=== PATIENT | female | born 1945 | race Caucasian/White ===

== ENCOUNTER → 2016-03-02 | Outpatient (CLI) | payer MEDICARE ==
--- NOTE | 2016-03-02 17:07 | US ---
EXAMINATION TYPE: US venous doppler duplex UE LT DATE OF EXAM: 03/02/2016 3:58 PM COMPARISON: NONE CLINICAL HISTORY: 70-year-old female with left elbow pain. SIDE PERFORMED: left Findings: The subclavian, internal jugular vein, axillary, and brachial veins were scanned. The superficial bas ilic and cephalic veins as well as the smaller paired radial and ulnar veins were also scanned. There is no abnormal filling defect. Satisfactory flow is demonstrated. Compressibility is demonstrat ed wherever possible. Left Arm: Negative for DVT IMPRESSION: No evidence for acute DVT within the left upper extremity.
--- NOTE | 2016-03-02 19:40 | XR ---
Bilateral shoulders HISTORY: Pain 3 views of both shoulders No comparisons Bone mineralization is reduced, joint spaces and alignment are maintained. No fracture or dislocation . Lung apices are normal as visualized. Distal acromial spur present on the right. Patient is post me nichelle sternotomy. Pacemaker is noted incidentally. Distal acromion is downturned bilaterally. IMPRESSION: Correlate for impingement. Osteopenia.
--- NOTE | 2016-03-02 19:42 | XR ---
Cervical spine HISTORY: Neck pain 5 views of the cervical spine Carotid artery calcifications are suspected. Multilevel facet arthropathy change. Cervical vertebral bodies show preserved height. Bone mineralization is reduced. Retrolisthesis grade 1 C3-4 and C4-5, t here is loss of disc height at C3-4, C4-5. Multilevel spondylosis. Prevertebral soft tissues are norm al. Foraminal encroachment present at C3-4, C4-5 bilaterally due to lateral extension of endplates. P atient is post median sternotomy. Pacemaker lead noted. IMPRESSION: Degenerative disc disease, facet arthropathy, multilevel foraminal encroachment and carot id artery calcification.
--- NOTE | 2016-03-02 19:46 | XR ---
Left elbow HISTORY: Left elbow pain 3 views of the left elbow No comparisons Bone mineralization somewhat reduced. Joint spaces and alignment are maintained. No evident joint eff usion. Question artifact, small flake-like metallic densities posterior to the elbow. Small amount of spurring present at the anterior aspect, coronary process. Question some calcification at the origin of the flexor and extensor tendons. Possible calcific tendinitis, correlate for pain medially and la terally at the distal humerus. IMPRESSION: Mild arthropathy and additional findings above.
== END | disposition home or self-care (01) ==
LOC: RADUSWWP 15:00
PROVIDERS: ATTEND Family Medicine
DX: M25.522 Pain in left elbow (principal); M85.80 Other specified disorders of bone density and structure, unspecified site; M50.30 Other cervical disc degeneration, unspecified cervical region; M46.82 Other specified inflammatory spondylopathies, cervical region; M19.022 Primary osteoarthritis, left elbow
CPT/HCPCS: 72050

== ENCOUNTER → 2016-03-22 | Outpatient (CLI) | payer MEDICARE ==
--- NOTE | 2016-03-22 14:45 | US ---
EXAMINATION TYPE: US carotid duplex BILAT DATE OF EXAM: 03/22/2016 2:26 PM COMPARISON: NONE CLINICAL HISTORY: I77.9 DISORDER OF ARTERIES. Patient c/o left arm weakness x 2 years; prior smoker EXAM MEASUREMENTS: RIGHT: Peak Systolic Velocity (PSV) cm/sec ----- Right CCA: 48.5 ----- Right ICA: 73.3 ----- Right ECA: 98.3 ICA/CCA ratio: 1.5 RIGHT: End Diastole cm/sec ----- Right CCA: 15.4 ----- Right ICA: 16.3 ----- Right ECA: 12.5 LEFT: Peak Systolic Velocity (PSV) cm/sec ----- Left CCA: 70.0 ----- Left ICA: 87.8 ----- Left ECA: 89.8 ICA/CCA ratio: 1.3 LEFT: End Diastole cm/sec ----- Left CCA: 15.7 ----- Left ICA: 31.8 ----- Left ECA: 0.0 VERTEBRALS (direction of flow): Right Vertebral: Antegrade Left Vertebral: Antegrade IMPRESSION: Bilateral carotid bifurcation calcifications are noted, but PSV is within normal limits bilaterally. Criteria for Assigning % of Stenosis / Diameter reduction (Estimation based on the indirect measurements of the internal carotid artery velocities (ICA PSV). 1. Normal (no stenosis)=ICA PSV < 125 cm/s: ratio < 2.0: ICA EDV<40 cm/s. 2. Less than 50% stenosis=ICA PSV < 125 cm/s: ratio < 2.0: ICA EDV<40 cm/s. 3. 50 to 69% stenosis=ICA PSV of 125 to 230 cm/s: ration 2.0 ? 4.0: ICA EDV 40-100 cm/s. 4. Greater than 70% stenosis to near occlusion= ICA PSV > 230 cm/s: ratio > 4.0: ICA EDV > 100 cm/s. 5. Near occlusion= ICA PSV velocities may be low or undetectable: variable ratio and ICA EDV. 6. Total occlusion=unable to detect flow.
== END | disposition home or self-care (01) ==
LOC: RADUSWWP 13:34
PROVIDERS: ATTEND Family Medicine
DX: I65.23 Occlusion and stenosis of bilateral carotid arteries (principal)
CPT/HCPCS: 93880

== ENCOUNTER 2016-09-26 11:38 | Emergency (ER) | payer MEDICARE ==
--- NOTE | 2016-09-26 12:11 | ED ---
General Adult HPI - General Chief complaint: Extremity Injury, Lower Stated complaint: left leg bruising Time Seen by Provider: 09/26/16 11:51 Source: patient, RN notes reviewed Mode of arrival: wheelchair Limitations: no limitations - History of Present Illness Initial comments: Patient is 70-year-old female who presents emergency room today with a chief complaint of an injury to the left lower leg. She does admit that 9 days ago she was trying to get into the bathtub when she slipped and hit the ayala of the left leg on the side of the tub. She missed that she's had some bruises of swelling to the area. She states it seems to be getting worse. She states she has had tenderness with ambulation. Does admit some tenderness to the calf area. Missed some pain down into the ankle as well. She denies any head injury or loss consciousness. Denies any other complaints or symptoms at this time. Patient denies any recent fever, chills, shortness of breath, chest pain, back pain, abdominal pain, nausea or vomiting, dysuria or hematuria, constipation or diarrhea, headaches or visual changes, or any other complaints. - Related Data Home Medications Medication Instructions Recorded Confirmed Cholecalciferol [Vitamin D3] 2,000 unit PO DAILY 04/22/15 09/26/16 Cyanocobalamin (Vitamin B-12) 1,000 mcg PO DAILY 04/22/15 09/26/16 [Vitamin B12] Insulin Glargine [Lantus] 50 unit SQ HS 04/22/15 09/26/16 Losartan [Cozaar] 25 mg PO DAILY 04/22/15 09/26/16 Metoprolol Tartrate [Lopressor] 25 mg PO BID 04/22/15 09/26/16 Nitroglycerin Sl Tabs [Nitrostat] 0.4 mg SL DIRECTED PRN 04/22/15 09/26/16 Brinzolamide/Brimonidine Tart 1 drop BOTH EYES BID 04/27/15 09/26/16 [Simbrinza 1%-0.2% Eye Drops] Prasugrel [Effient] 10 mg PO Q48H 07/08/15 09/26/16 Aspirin [Adult Low Dose Aspirin EC] 81 mg PO DAILY 11/15/15 09/26/16 Furosemide [Lasix] 20 mg PO DIRECTED 11/15/15 09/26/16 metFORMIN HCL [Glucophage] 500 mg PO BID 11/15/15 09/26/16 Atorvastatin [Lipitor] 80 mg PO HS 09/26/16 09/26/16 Gabapentin [Neurontin] 100 mg PO HS 09/26/16 09/26/16 Glimepiride [Amaryl] 1 mg PO DAILY 09/26/16 09/26/16 Sennosides/Docusate Sodium 1 tab PO DAILY 09/26/16 09/26/16 [Doc-Q-Lax Tablet] Previous Rx's Medication Instructions Recorded Cephalexin [Keflex] 500 mg PO Q12HR 10 Days 09/26/16 Allergies Allergy/AdvReac Type Severity Reaction Status Date / Time Iodinated Contrast- Oral and Allergy Anaphylaxis Verified 09/26/16 12:07 IV Dye [Iodinated Contrast Media - IV Dye] Review of Systems ROS Statement: Those systems with pertinent positive or pertinent negative responses have been documented in the HPI. ROS Other: All systems not noted in ROS Statement are negative. Past Medical History Past Medical History: Asthma, Diabetes Mellitus, Eye Disorder, Hyperlipidemia, Myocardial Infarction (CT) Additional Past Medical History / Comment(s): ankle swelling, see Dr Gonzalez H& P, diabetic neuropathy, glaucoma Last Myocardial Infarction Date:: 2006 History of Any Multi-Drug Resistant Organisms: None Reported Past Surgical History: AICD, Appendectomy, Coronary Bypass/CABG, Heart Catheterization, Heart Catheterization With Stent, Hysterectomy, Orthopedic Surgery, Tonsillectomy Additional Past Surgical History / Comment(s): removal of gallstones, hammertoe rt foot, CABG-2008, total 5 cardiac stents Past Anesthesia/Blood Transfusion Reactions: No Reported Reaction Additional Past Anesthesia/Blood Transfusion Reaction / Comment(s): Pt has received blood in the past without reaction. Date of Last Stent Placement:: 06/2015 Past Psychological History: No Psychological Hx Reported Smoking Status: Unknown if ever smoked Past Alcohol Use History: None Reported Past Drug Use History: None Reported - Past Family History Mother Family Medical History: Cancer Additional Family Medical History / Comment(s): Mother of colon cancer at the age of 44 yrs. Brother(s) Family Medical History: Coronary Artery Disease (CAD), Diabetes Mellitus Father History Unknown: Yes Daughter(s) Family Medical History: Cancer General Exam - General Exam Comments Initial Comments: General: The patient is awake and alert, in no distress, and does not appear acutely ill. Eye: Pupils are equal, round and reactive to light, extra-ocular movements are intact. No nystagmus. There is normal conjunctiva bilaterally. No signs of icterus. Ears, nose, mouth and throat: There are moist mucous membranes and no oral lesions. Neck: The neck is supple, there is no tenderness or JVD. Cardiovascular: There is a regular rate and rhythm. No murmur, rub or gallop is appreciated. Respiratory: Lungs are clear to auscultation, respirations are non-labored, breath sounds are equal. No wheezes, stridor, rales, or rhonchi. Gastrointestinal: Soft, non-distended, non-tender abdomen without masses or organomegaly noted. There is no rebound or guarding present. No CVA tenderness. Bowel sounds are unremarkable. Musculoskeletal: Normal ROM patient does have bruising and swelling over the anterior aspect locally tender middle of the tibia bone. Does have some tenderness in the posterior calf. Mild tenderness to the medial aspect of the left ankle. Strength 5/5. Sensation intact. Pulses equal bilaterally 2+. Neurological: A&O x 3. CN II-XII intact, There are no obvious motor or sensory deficits. Coordination appears grossly intact. Speech is normal. Skin: There is bruising swelling to the anterior left ayala. There is local redness around the area. No lymphangitic streaking. Some bruising down into the posterior aspect of the left foot. Psychiatric: Cooperative, appropriate mood & affect, normal judgment. Limitations: no limitations Course Vital Signs 09/26/16 11:39 Temperature 97.1 F L Pulse Rate 54 L Respiratory 16 Rate Blood Pressure 147/63 O2 Sat by Pulse 99 Oximetry Medical Decision Making - Medical Decision Making Patient reexamined at this time shows no signs of distress. Her ultrasound is negative for any evidence of DVT. X-ray negative for any fractures or dislocations. Results were discussed with the patient. There is a bruised area to the anterior aspect of the left ayala with some local redness no. She does admit that the pain and swelling seems to have gotten worse. There is concern for possible cellulitis. Patient will be started on antibiotics. Patient advised follow-up the family doctor over the next 2 days or return here to the emergency room if any symptoms increase or worsen. Disposition Clinical Impression: Cellulitis Disposition: HOME SELF-CARE Condition: Good Instructions: Cellulitis (ED) Additional Instructions: Please use medication as discussed. Please follow-up with family doctor in the next 2 days of symptoms have not improved. Please return to emergency room if the symptoms increase or worsen or for any other concerns. Prescriptions: Cephalexin [Keflex] 500 mg PO Q12HR 10 Days Referrals: Kenya López MD [Primary Care Provider] - 1-2 days Time of Disposition: 14:30
--- NOTE | 2016-09-26 12:32 | XR ---
EXAMINATION TYPE: XR tibia fibula LT DATE OF EXAM: 09/26/2016 CLINICAL HISTORY: Fall injury 9 days ago with persistent pain swelling and redness. TECHNIQUE: Two views of the left leg are obtained. COMPARISON: None. FINDINGS: There is no acute fracture or dislocation seen in the left tibia or fibula. Osseous struct ures are demineralized. There is moderate spurring at level of left knee joint. Visualized ankle join t is felt within normal limits. Metallic pointer is noted at area of clinical concern just past midline right tibial level medially a nd anteriorly. There is mild diffuse subcutaneous edema and some scattered phleboliths. No suspicious focal swelling or large hematoma. There are surgical clips in soft tissue seen just superior to this . No suspicious cortical destruction or periosteal reaction is present. IMPRESSION: There is no acute fracture or dislocation seen in the left tibia or fibula.
[2016-09-26] MEDS ORDERED: HYDROcodone/APAP 5-325MG 1 EACH TAB PO STA (12:44)
[2016-09-26 14:38] VITALS: BP 114/56; PULSE 75; RESP 19; TEMP 97.8
--- NOTE | 2016-09-26 15:03 | US ---
EXAMINATION TYPE: US venous doppler duplex LE LT DATE OF EXAM: 09/26/2016 1:44 PM COMPARISON: NONE CLINICAL HISTORY: Pain. Left leg pain and edema x 9 days SIDE PERFORMED: Left TECHNIQUE: The lower extremity deep venous system is examined utilizing real time linear array sonog sherice with graded compression, doppler sonography and color-flow sonography. VESSELS IMAGED: External Iliac Vein (EIV) Common Femoral Vein Deep Femoral Vein Greater Saphenous Vein * Femoral Vein Popliteal Vein Small Saphenous Vein * Proximal Calf Veins (* superficial vessels) Left Leg: Negative for DVT IMPRESSION: 1. Left lower extremity negative for ultrasound evidence of deep venous thrombosis.
== END 2016-09-26 14:38 | disposition home or self-care (01) ==
LOC: EC 11:38
DX: L03.116 Cellulitis of left lower limb (principal); S80.12XA Contusion of left lower leg, initial encounter; M25.572 Pain in left ankle and joints of left foot; E78.5 Hyperlipidemia, unspecified; I25.2 Old myocardial infarction; E11.40 Type 2 diabetes mellitus with diabetic neuropathy, unspecified; H57.8 Other specified disorders of eye and adnexa; Z79.02 Long term (current) use of antithrombotics/antiplatelets; Z79.4 Long term (current) use of insulin; Z79.82 Long term (current) use of aspirin; Z79.84 Long term (current) use of oral hypoglycemic drugs; Z79.899 Other long term (current) drug therapy; Z91.041 Radiographic dye allergy status
CPT/HCPCS: 99284

== ENCOUNTER → 2016-09-26 | Outpatient (CLI) | payer MEDICARE | END | disposition home or self-care (01) | LOC: LABWHC1 11:27 | PROVIDERS: ATTEND Family Medicine | DX: R94.4 Abnormal results of kidney function studies (principal) | CPT/HCPCS: 36415; 81050; 82575; 84156 ==

== ENCOUNTER → 2016-10-28 | Outpatient (CLI) | payer MEDICARE ==
[2016-10-28 08:47] LABS: Basophils # (A) 0.1 k/uL (0-0.2); Basophils % (A) 1 %; CH 28.3; CHCM 31.2; Eosinophils # (A) 0.2 k/uL (0-0.7); Eosinophils % (A) 4 %; HCT 39.7 % (34.0-46.0); HDW 2.55; HGB 12.7 gm/dL (11.4-16.0); Hypochromasia Slight; Luc # (Auto) 0.14; Luc % (Auto) 2; Lymphocytes # (A) 1.5 k/uL (1.0-4.8); Lymphocytes % (A) 24 %; MCH 29.3 pg (25.0-35.0); MCV 91.5 fL (80.0-100.0); Monocytes # (A) 0.4 k/uL (0-1.0); Monocytes % (A) 6 %; Neutrophils % (A) 63 %; RBC 4.34 m/uL (3.80-5.40); RDW 14.1 % (11.5-15.5); WBC 6.3 k/uL (3.8-10.6); WBC (Perox) 6.37
[2016-10-28 09:10] LABS: ALT 29 U/L (9-52); AST 18 U/L (14-36); Alkaline Phosphatase 64 U/L (38-126); Anion Gap 11 mmol/L; Blood Urea Nitrogen 29 mg/dL (7-17); Calcium 8.9 mg/dL (8.4-10.2); Carbon Dioxide 26 mmol/L (22-30); Chloride 108 mmol/L (98-107); Glucose 127 mg/dL (74-99); Non-African American GFR(MDRD) 53 (>60 ml/min/1.73 sqM); Phosphorous 4.3 mg/dL (2.5-4.5); Potassium 4.3 mmol/L (3.5-5.1); Sodium 145 mmol/L (137-145); Total Bilirubin 0.5 mg/dL (0.2-1.3); Total Protein 6.5 g/dL (6.3-8.2)
== END | disposition home or self-care (01) ==
LOC: LABWHC1 10-25 13:32
PROVIDERS: ATTEND Family Medicine
DX: R94.4 Abnormal results of kidney function studies (principal)
CPT/HCPCS: 36415; 80053; 84100; 85025

== ENCOUNTER → 2017-05-10 | Outpatient (CLI) | payer MEDICARE | END | disposition home or self-care (01) | LOC: RADUSWWP 08:18 | PROVIDERS: ATTEND Family Medicine | DX: M79.605 Pain in left leg (principal); M79.604 Pain in right leg | CPT/HCPCS: 93922 ==

== ENCOUNTER → 2017-08-24 | Outpatient (CLI) | payer MEDICARE ==
[2017-08-24 07:56] LABS: HCT 40.1 % (34.0-46.0); HGB 12.7 gm/dL (11.4-16.0); MCH 29.2 pg (25.0-35.0); MCHC 31.7 g/dL (31.0-37.0); MCV 92.1 fL (80.0-100.0); Mean Platelet Volume 7.4; Platelet Count 192 k/uL (150-450); RBC 4.36 m/uL (3.80-5.40)
[2017-08-24 08:16] LABS: Albumin 3.8 g/dL (3.5-5.0); Calcium 9.1 mg/dL (8.4-10.2); Potassium 4.7 mmol/L (3.5-5.1); Total Bilirubin 0.7 mg/dL (0.2-1.3); Total Protein 6.3 g/dL (6.3-8.2); Uric Acid 7.8 mg/dL (3.7-7.4)
[2017-08-24 08:57] LABS: Appearance,Urine Clear (Clear); Bacteria,Urine Rare /hpf; Bilirubin,Urine Negative (Negative); Blood,Urine Negative (Negative); Color,Urine Light Yellow; Glucose,Urine (UA) Negative (Negative); Hyaline Casts,Urine 3 /lpf (0-2); Ketones,Urine Negative (Negative); Leukocyte Esterase,Urine Moderate (Negative); Mucus,Urine Rare /hpf; Nitrite,Urine Negative (Negative); PH, Urine 5.5 (5.0-8.0); Protein,Urine Negative (Negative); RBC,Urine <1 /hpf (0-5); Specific Gravity,Urine 1.014 (1.001-1.035); Squamous Epithelial Cell,Urine 1 /hpf (0-4); Urobilinogen,Urine <2.0 mg/dL (<2.0); WBC,Urine 3 /hpf (0-5)
[2017-08-24 11:28] LABS: Iron Saturation 26.33 (12.00-45.00)
[2017-08-24 11:40] LABS: Vitamin D 25 Hydroxy 27.6 ng/mL (30.0-100.0)
[2017-08-24 11:56] LABS: Parathyroid Hormone Intact 47.7 pg/mL (14.0-72.0)
== END | disposition home or self-care (01) ==
LOC: LABWHC1 07:10
PROVIDERS: ATTEND Nurse Practitioner Family
DX: N39.0 Urinary tract infection, site not specified (principal); N25.81 Secondary hyperparathyroidism of renal origin; E55.9 Vitamin D deficiency, unspecified; M10.9 Gout, unspecified; D50.9 Iron deficiency anemia, unspecified; N18.3 Chronic kidney disease, stage 3 (moderate)
CPT/HCPCS: 36415; 80053; 81001; 82043; 82306; 82570; 82728; 83540; 83550; 83970; 84550; 85027

== ENCOUNTER → 2018-05-24 | Outpatient (CLI) | payer MEDICARE ==
[2018-05-24 11:09] LABS: HCT 42.3 % (34.0-46.0); Hypochromasia Slight; MCH 28.3 pg (25.0-35.0); MCHC 30.7 g/dL (31.0-37.0); MCV 92.1 fL (80.0-100.0); Mean Platelet Volume 7.2; Platelet Count 207 k/uL (150-450); RBC 4.59 m/uL (3.80-5.40); RDW 14.3 % (11.5-15.5); WBC 6.4 k/uL (3.8-10.6)
[2018-05-24 11:20] LABS: Potassium 4.8 mmol/L (3.5-5.1)
== END ==
LOC: LABPAT 09:46
PROVIDERS: ATTEND Internal Medicine Interventional Cardiology
DX: Z01.812 Encounter for preprocedural laboratory examination (principal); I25.2 Old myocardial infarction; I25.718 Atherosclerosis of autologous vein coronary artery bypass graft(s) with other forms of angina pectoris; I10 Essential (primary) hypertension
CPT/HCPCS: 80051; 82565; 84520; 85027

== ENCOUNTER 2018-05-30 06:58 | Day surgery (SDC) | payer MEDICARE ==
[2018-05-24 12:15] VITALS: BMI 29.2
[~2018-05-30 06:58] MED LIST: ALPRAZolam 0.25 MG TAB PO PRN; ALPRAZolam 0.5 MG TAB PO PRN; ASPIRIN 325 MG TAB PO STA; ATORVASTATIN 80 MG TAB PO STA; NITROGLYCERIN SL TABS 0.4 MG TAB SUBLINGUAL PRN
[2018-05-30] MEDS ORDERED: SODIUM CHLORIDE 0.9% 1,000 ML in EMPTY BAG 1 BAG IV ONE (07:00)
[2018-05-30] MEDS ORDERED: SODIUM CHLORIDE 0.9% 1,000 ML IV ONE (07:20)
[2018-05-30 07:35] LABS: Glucose,Whole Blood 351 mg/dL (75-99)
[2018-05-30] MEDS: INSULIN ASPART (NovoLOG) 100 UNIT/ML VIAL SQ SCH ×5 (07:42→20:37)
[2018-05-30] MEDS ORDERED: LIDOCAINE 1% INJ 10MG/ML (20 ML MDV) ONE (10:39)
[2018-05-30] MEDS ORDERED: MIDAZOLAM 2 MG/2 ML VIAL IVP ONE ×2 (11:20→12:17)
[2018-05-30] MEDS ORDERED: LIDOCAINE 1% INJ 10MG/ML (20 ML MDV) SQ ONE (11:21)
[2018-05-30] MEDS ORDERED: NITROGLYCERIN SL TABS 0.4 MG TAB SUBLINGUAL ONE (11:26)
[2018-05-30] MEDS ORDERED: HEPARIN SODIUM 1,000 UN/ML (10ML VL) ONE (11:45)
[2018-05-30] MEDS ORDERED: HEPARIN SODIUM 1,000 UN/ML (10ML VL) IV ONE ×2 (11:46→12:38)
[2018-05-30] MEDS ORDERED: IOPAMIDOL-370 100ML BTL INJ ONE ×2 (12:09→12:48)
[2018-05-30] MEDS ORDERED: IOPAMIDOL-370 50ML BTL INJ ONE (12:33)
[2018-05-30] MEDS ORDERED: TICAGRELOR 90 MG TAB ONE (12:42)
[2018-05-30] MEDS ORDERED: MAG HYDROX/AL HYDROX/SIMETH 30 ML CUP PO PRN (13:02)
[2018-05-30] MEDS ORDERED: NITROGLYCERIN SL TABS 0.4 MG TAB SUBLINGUAL PRN ×2 (13:02→15:37)
[2018-05-30] MEDS ORDERED: ATROPINE SULFATE 0.1 MG/ML 10ML SYRINGE IV PRN (13:02)
[2018-05-30] MEDS ORDERED: ZOLPIDEM 5 MG TAB PO PRN (13:02)
[2018-05-30] MEDS ORDERED: RX INFO: IV CONTRAST WAS GIVEN 1 EACH MISC MISCELLANE PRN (13:02)
[2018-05-30 13:10] LABS: Glucose,Whole Blood 278 mg/dL (75-99)
[2018-05-30] MEDS ORDERED: SODIUM CHLORIDE 0.9% 1,000 ML IV SCH (13:15)
--- NOTE | 2018-05-30 14:03 | CC ---
CARDIAC CATHETERIZATION REPORT DATE OF SERVICE: 05/30/2018. PROCEDURE: 1. Left heart catheterization, coronary angiography and selective injection of WILLETT graft. 2. PTCA and stenting of left main coronary artery with a drug-eluting stent. 3. PTCA and stenting of mid LAD with a drug-eluting stent. PERFORMED BY: Dr. Candy Robles. Moderate conscious sedation time was 85 minutes. Patient was administered Versed. Oxygen saturation, hemodynamics and EKG were monitored closely. CLINICAL INFORMATION: Mrs. Lili Magaña is a 72-year-old lady with history of type 2 diabetes, mild CKD, hypertension, hyperlipidemia, who underwent aortocoronary bypass surgery in 2006 with a WILLETT to LAD and vein graft to the obtuse marginal branch of circumflex and distal RCA. Both the vein grafts were occluded and WILLETT to LAD was patent. In 2016, I performed stenting of the in-stent restenoses within the mid RCA. I also performed stenting of the LAD prior to the total occlusion before the diagonal branch with two drug-eluting stents. There was a left main lesion which was not addressed. It was about 50% and the and I could not get into the circumflex which was completely diffusely diseased. The ostium of the circumflex had a 60% stenosis, but I could not gain access with a wire at that time. She was doing well until lately, but now had a significantly abnormal stress test with inferolateral ischemia. She also has an ICD with ejection fraction in the 30% range. She was advised cardiac cath after due discussion regarding risks, benefits, and options. PROCEDURE NOTE: Under local anesthesia and strict aseptic precautions, a 6-Telugu introducer was placed in the right femoral artery. Standard left Monique catheter was used to perform selective coronary angiography of the left system. A Pepito catheter was used to check the WILLETT graft and the right coronary artery. Two vein grafts were occluded. I used the same catheter to check LV pressures but did not perform an LV-gram. I noted that the left main had a 99% stenosis and subtotal occlusion of circumflex was noted and also LAD had a compromise in the midportion. She was advised PCI that was performed in the same setting. very cautiously, the contrast was administered. She received about 130 mL of contrast. She was given heparin intravenously and ACT was kept between 200 and 250. She also received 180 mg of Brilinta at the end of the procedure. Following the procedure, I used a Perclose device to secure hemostasis and she was sent to the room in a stable condition. CARDIAC CATHETERIZATION FINDINGS: RIGHT CORONARY ARTERY: Dominant vessel, has a area of stenosis within the midportion where there was a previous stent. I had performed a in-stent restenoses dilatation with a new stent in 2016. The area is widely patent. There is about a 35% narrowing in the mid RCA. RCA is a dominant vessel, bifurcates into two distal branches, supplies a sizable amount of myocardium and also provide some collaterals to the distal circumflex branches. The RCA therefore does not have significant disease and the stented segment is patent with no more than 30% to 35% narrowing. LEFT MAIN CORONARY ARTERY: This is a heavily calcified vessel that has a distal lesion of 99% with sluggish flow in the LAD as well as very limited flow in the circumflex. Circumflex appears to be subtotally occluded, chronically occluded. Diffuse disease is noted from the ostium all the way to the distal branches. Subtotal occlusion of circumflex and also a tight lesion in the distal left main is noted with some 70% lesion in the mid LAD. The LAD is totally occluded in the mid portion after the origin of two diagonal branches. The circumflex has a subtotal occlusion, but is a diffuse disease vessel. LEFT INTERNAL MAMMARY ARTERY GRAFT TO LAD: The graft is widely patent at its origin, course insertion site and opacified LAD has minor irregularities, no significant disease. Left ventricular end-diastolic pressure was about 12-14 mmHg without any gradient across the aortic valve. There was, if any, less than 10 mm gradient noted. FINAL IMPRESSION: This patient has a total occlusion of both vein grafts. Diffuse disease and subtotal occlusion of circumflex whose graft was totally occluded. Left main now has a 95% stenosis and just before bifurcation and LAD has diffuse disease and total occlusion in the midportion and the mid segment has a 70% to 80% narrowing. The previously stented dominant RCA is patent. Filling pressures are acceptable. RECOMMENDATION: I recommended PCI of left main and possibly of circumflex and LAD and proceeded to perform it in the same setting. It was explained to the patient that she is high risk for complication as well as restenosis rate. PCI PROCEDURE DETAILS: A standard left Monique guide catheter was used to cannulate the left coronary artery. A run-through wire was used to cross the lesion in the left mid LAD. Wire was kept distally. With multiple wires and also using a Fine Cross catheter support, I could not gain access into the circumflex that was diffusely diseased. I made a decision to not pursue circumflex intervention, which was being filled by collaterals of the right system but to open up the LAD which had a tight lesion as well. I could not advance the 3.0 balloon and therefore I used a 2.0 NC Trek balloon. With this I gave the high pressure inflation for the left main and then gradually went up to 3.0 balloon. With a 3.0 balloon at high pressure, there was a dissection noted within the left main. I then lost the guide support and the wire support. I had to rewire the lesion. I then used a 3.0 caliber 12 mm long Xience stent and deployed this in the left main covering the area of dissection. I then advanced a 2.0 Tyson and deployed this in the mid LAD. This was then postdilated with a 2.5 caliber 8 mm long NC Trek balloon up to 15 atmospheres. A fairly decent result in the mid LAD was achieved. The left main was then addressed with a 3.5 caliber 12 mm NC Trek balloon at high pressures. The patient had mild chest pain, no significant EKG changes. I could not salvage the circumflex vessel which appeared to have a sluggish flow even at the end of the procedure. However, the left main result was excellent as well as the LAD had a significant improvement in angiographic appearance and flow. Results were discussed with the patient and family. The Perclose device was used to secure hemostasis and she was sent to the room in a stable condition. Good angiographic result was achieved of the left main and mid LAD, but I could not open of the circumflex. A small dissection in the left main was addressed with a stent and the end result was excellent. MMODL / IJN: [id number] /
[2018-05-30 16:36] LABS: Glucose,Whole Blood 230 mg/dL (75-99)
[2018-05-30 20:06] LABS: Glucose,Whole Blood 260 mg/dL (75-99)
[2018-05-30] MEDS: BRIMONIDINE TARTRATE 0.2% DROPS 5 ML BTL BOTH EYES SCH (20:21)
[2018-05-30] MEDS: DORZOLAMIDE HCL 2% DROPS 10 ML BTL BOTH EYES SCH (20:21)
[2018-05-30] MEDS: METOPROLOL TARTRATE 25 MG TAB PO SCH (20:37)
[2018-05-30] MEDS ORDERED: INSULIN DETEMIR (LEVEMIR) 100 UNIT/ML SYR SQ SCH (21:00)
[2018-05-30] MEDS ORDERED: ATORVASTATIN 80 MG TAB PO SCH ×2 (21:00)
[2018-05-30 23:11] VITALS: RESP 18
[2018-05-31 06:13] LABS: Glucose,Whole Blood 155 mg/dL (75-99)
[2018-05-31] MEDS: INSULIN ASPART (NovoLOG) 100 UNIT/ML VIAL SQ SCH (06:21)
[2018-05-31 06:41] LABS: Basophils % (A) 0 %; Eosinophils # (A) 0.1 k/uL (0-0.7); Eosinophils % (A) 1 %; HCT 38.7 % (34.0-46.0); HGB 12.3 gm/dL (11.4-16.0); Lymphocytes # (A) 1.8 k/uL (1.0-4.8); Lymphocytes % (A) 16 %; MCH 28.4 pg (25.0-35.0); MCHC 31.7 g/dL (31.0-37.0); MCV 89.4 fL (80.0-100.0); Mean Platelet Volume 8.9; Monocytes # (A) 0.6 k/uL (0-1.0); Monocytes % (A) 6 %; Neutrophils # (A) 8.4 k/uL (1.3-7.7); Neutrophils % (A) 76 %; Platelet Count 207 k/uL (150-450); RBC 4.32 m/uL (3.80-5.40); RDW 15.1 % (11.5-15.5)
[2018-05-31 06:55] LABS: Calcium 9.1 mg/dL (8.4-10.2); Magnesium 2.5 mg/dL (1.6-2.3); Potassium 4.8 mmol/L (3.5-5.1)
[2018-05-31] MEDS: DORZOLAMIDE HCL 2% DROPS 10 ML BTL BOTH EYES SCH (08:29)
[2018-05-31] MEDS: BRIMONIDINE TARTRATE 0.2% DROPS 5 ML BTL BOTH EYES SCH (08:30)
[2018-05-31] MEDS: METOPROLOL TARTRATE 25 MG TAB PO SCH (08:31)
[2018-05-31 08:47] VITALS: BP 131/91; PULSE 72; TEMP 97.8
--- NOTE | 2018-05-31 08:55 | DS ---
DISCHARGE SUMMARY DATE OF ADMISSION: 05/30/2018. DATE OF DISCHARGE: 05/31/2018. DIAGNOSES: 1. Unstable angina, ischemic cardiomyopathy. 2. Type 2 diabetes. 3. Hypertension. 4. Hyperlipidemia. 5. Prior history of aortocoronary bypass surgery. PROCEDURES PERFORMED: 1. Left heart catheterization, coronary angiography, selective injection of bypass grafts. 2. PTCA and stenting of left main and mid LAD with drug-eluting stents. Mrs. Lili Magaña was admitted to the hospital for elective cardiac cath because of abnormal stress test with inferolateral reversible defect as well as some anteroapical reversible defect. Cardiac cath revealed that her left main was subtotal and also the circumflex was subtotal, but this was a heavily diseased vessel whose graft had been previously occluded. The previously stented RCA was patent. The LAD that was stented had some compromise, but the left main developed a 95% subtotal stenosis. The patient underwent stenting of the left main and mid LAD with 2 drug-eluting stents with excellent result. Unfortunately, the circumflex could not be opened up because it was unable to get a wire across the circumflex and the vessel was diffusely diseased in the prospect of leaving it open even with a stent was quite poor. We therefore did not persist circumflex intervention. A left main and LAD had a good result. RCA was widely patent. Postprocedure course was unremarkable. Blood pressure is 120/80, pulse rate is 70 per minute. No JVD. S1, S2 with a short systolic murmur is audible. Lungs are clear. Abdomen is soft. Right groin is clean and dry with a good pulse. EKG is unremarkable for any acute changes. Laboratory data was good. Discharge instructions regarding activity, diet and medications were given. Patient will be on dual antiplatelet therapy and will be discharged today and she will follow up with me on Sunday as scheduled. MMODL / IJN: [id number] /
[2018-05-31] MEDS ORDERED: CHOLECALCIFEROL 1,000 UNIT TAB PO SCH (09:00)
[2018-05-31] MEDS ORDERED: ALLOPURINOL 100 MG TAB PO SCH (09:00)
[2018-05-31] MEDS ORDERED: FUROSEMIDE 40 MG TAB PO SCH (09:00)
[2018-05-31] MEDS ORDERED: GABAPENTIN 100 MG CAP PO SCH (09:00)
[2018-05-31] MEDS ORDERED: ASPIRIN 81 MG PO SCH ×2 (09:00)
[2018-05-31] MEDS ORDERED: GLIMEPIRIDE 1 MG TAB PO SCH (09:00)
[2018-05-31] MEDS ORDERED: TICAGRELOR 90 MG TAB PO SCH (09:00)
[2018-05-31] MEDS ORDERED: LOSARTAN 25 MG TAB PO SCH (09:00)
[2018-05-31] MEDS ORDERED: CYANOCOBALAMIN 500 MCG TAB PO SCH (09:00)
[2018-06-01] MEDS ORDERED: FUROSEMIDE 20 MG TAB PO SCH (09:00)
== END 2018-05-31 10:08 | disposition home or self-care (01) ==
LOC: CATHCVL 06:58 → 3SCARD 14:36 → CATHCVL 05-31 10:08
PROVIDERS: ATTEND Internal Medicine Interventional Cardiology
DX: I25.110 Atherosclerotic heart disease of native coronary artery with unstable angina pectoris (principal); T82.855A Stenosis of coronary artery stent, initial encounter; I25.5 Ischemic cardiomyopathy; E78.5 Hyperlipidemia, unspecified; I12.9 Hypertensive chronic kidney disease with stage 1 through stage 4 chronic kidney disease, or unspecified chronic kidney disease; E11.22 Type 2 diabetes mellitus with diabetic chronic kidney disease; R94.39 Abnormal result of other cardiovascular function study; N18.2 Chronic kidney disease, stage 2 (mild); E78.00 Pure hypercholesterolemia, unspecified; E11.65 Type 2 diabetes mellitus with hyperglycemia; I25.82 Chronic total occlusion of coronary artery; Z95.1 Presence of aortocoronary bypass graft; Z95.810 Presence of automatic (implantable) cardiac defibrillator; Z72.0 Tobacco use; Z95.5 Presence of coronary angioplasty implant and graft; Z79.4 Long term (current) use of insulin; Z79.899 Other long term (current) drug therapy; Z79.82 Long term (current) use of aspirin; Z91.048 Other nonmedicinal substance allergy status; Z79.52 Long term (current) use of systemic steroids; Y71.2 Prosthetic and other implants, materials and accessory cardiovascular devices associated with adverse incidents
CPT/HCPCS: 93459; 80048; 83735; 85025; C9600 ×2; C1769 ×5; C1887 ×2; C1725 ×4; C1894; C1760; C1874 ×2; J2250; J2001; J1644; Q9967 ×2

== ENCOUNTER → 2018-06-10 | Outpatient (CLI) | payer MEDICARE ==
[2018-06-10 18:31] LABS: Anion Gap 9.4 mmol/L (4.00-12.00); Calcium 9.7 mg/dL (8.7-10.3); Carbon Dioxide 26.6 mmol/L (21.6-31.8); Potassium 4.5 mmol/L (3.5-5.5)
== END ==
LOC: LABWHC1 11:51
PROVIDERS: ATTEND Internal Medicine Interventional Cardiology
DX: I25.10 Atherosclerotic heart disease of native coronary artery without angina pectoris (principal); I50.9 Heart failure, unspecified
CPT/HCPCS: 36415; 80048

== ENCOUNTER → 2019-03-07 | Outpatient (CLI) | payer MEDICARE ==
--- NOTE | 2019-03-07 17:15 | CT ---
EXAMINATION TYPE: CT abdomen pelvis wo con DATE OF EXAM: 03/07/2019 COMPARISON: None INDICATION: LLQ pain DLP: 921 mGycm, Automated exposure control for dose reduction was used. CONTRAST: 0 mL of Isovue 300. Study performed with Oral Contrast TECHNIQUE: Axial images were obtained from above the diaphragm to the pubic rami in the axial plane a t 5 mm thick sections. Reconstructed images are reviewed on the computer in the coronal plane. FINDINGS: Limited CT sections are obtained the lung bases. The lung bases are clear. Coronary artery calcific ation is present. CT ABDOMEN: Liver: Normal Spleen: Normal Pancreas: Severely atrophic Adrenal glands: The adrenal glands are normal. Gallbladder: Normal Kidneys: No masses are evident. No hydronephrosis is present. There is a 0.2 cm cyst on the superio r medial right kidney. There is a posterior is 2.0 cm cyst on the upper pole left kidney. Aorta: Vascular stents calcification is within the aorta. Inferior vena cava: Normal. CT PELVIS: Loops of bowel within the abdomen and pelvis are normal. There are loops of bowel which are incom pletely distended or lack oral contrast limiting their evaluation. Appendix: Appendicolith is within the appendix. No suspicious acute appendicitis is evident. Urinary bladder: Decompressed causing limitation. Genitourinary structures: Uterus and ovaries are not identified. Osseous structures: No suspicious lytic or sclerotic lesions. IMPRESSIONS: 1. Appendicolith within the appendix. Acute appendicitis however is not evident on current CT findin gs. 2. Bilateral renal cysts. 3. Severely atrophic pancreas.
== END | disposition home or self-care (01) ==
LOC: RADCTMAIN 11:14
PROVIDERS: ATTEND Family Medicine
DX: K38.1 Appendicular concretions (principal); Q61.02 Congenital multiple renal cysts; K86.89 Other specified diseases of pancreas; Z88.3 Allergy status to other anti-infective agents
CPT/HCPCS: 74176

== ENCOUNTER → 2019-09-04 | Outpatient (CLI) | payer MEDICARE ==
--- NOTE | 2019-09-04 14:59 | MM ---
Reason for exam: clinical finding. History: Patient is postmenopausal. Family history of breast cancer in daughter at age 38. Physical Findings: Nurse Summary: 2cm nodule in the right breast at 5 o'clock (nurse marga). MG 3D Diag Mammo W/Cad ZAKIA Bilateral CC and MLO view(s) were taken. XCCL view(s) were taken of the right breast. The breast tissue is heterogeneously dense. This may lower the sensitivity of mammography. Right 5 o'clock and axillary palpable markers. 5 o'clock suspicious mass, subareolar focal asymmetry, upper outer quadrant focal asymmetry. Left 11 o'clock anterior focal asymmetry seems to persist on spot MLO but not the other views. These results were verbally communicated with the patient and result sheet given to the patient on 09/04/19. ASSESSMENT: Incomplete: need additional imaging evaluation, BI-RAD 0 RECOMMENDATION: Ultrasound of both breasts.
--- NOTE | 2019-09-04 15:04 | USB ---
Reason for exam: additional evaluation requested from abnormal screening. History: Patient is postmenopausal. Family history of breast cancer in daughter at age 38. US Breast BILAT Right complete breast ultrasound includes all four quadrants, the retroareolar region and axilla. Finding demonstrates a 0.9 x 1.2 x 0.4cm oval, echogenic lipoma at 4 o'clock, a 1.3 x 0.9 x 1.5cm taller than wide, irregular, hypoechoic lesion at 5 o'clock adjacent 4 o'clock 9mm cystic component, a 1.8 x 1.8 x 0.9cm oval node, borderline enlarged but benign appearing with thin cortex and fatty hilum at the axilla and at the 10 o'clock palpated by the nurse, there is dense tissue. Left complete breast ultrasound includes all four quadrants, the retroareolar region and axilla. Finding demonstrates a 1.0 x 1.1 x 0.7cm benign oval node at the axilla. These results were verbally communicated with the patient and result sheet given to the patient on 09/04/19. ASSESSMENT: Highly suggestive of malignancy, BI-RAD 5 RECOMMENDATION: Surgical consultation and ultrasound core biopsy of the right breast. (one site, 5 o'clock) Called Dr. López's office with mammographic findings and has scheduled an appointment for the patient for 09/11/19 at 4:[address] Alex. PRELIMINARY REPORT CALLED AND FAXED TO DR. ALEX ON 09/04/19.
== END | disposition home or self-care (01) ==
LOC: RADMAMWWP 09:54
PROVIDERS: ATTEND Family Medicine
DX: N63.10 Unspecified lump in the right breast, unspecified quadrant (principal); R92.8 Other abnormal and inconclusive findings on diagnostic imaging of breast
CPT/HCPCS: 77066; 76641; G0279; 77062

== ENCOUNTER → 2019-10-13 | Outpatient (CLI) | payer MEDICARE | END | disposition home or self-care (01) | LOC: LABPAT 13:10 | PROVIDERS: ATTEND Surgery | DX: Z11.59 Encounter for screening for other viral diseases (principal) | CPT/HCPCS: U0003; C9803 ==

== ENCOUNTER → 2019-10-14 | Outpatient (CLI) | payer MEDICARE ==
[2019-10-14 12:59] LABS: Basophils # (A) 0.1 k/uL (0-0.2); Basophils % (A) 1 %; Eosinophils # (A) 0.3 k/uL (0-0.7); Eosinophils % (A) 4 %; HCT 44.9 % (34.0-46.0); HGB 13.5 gm/dL (11.4-16.0); Hypochromasia Slight; Lymphocytes # (A) 1.9 k/uL (1.0-4.8); Lymphocytes % (A) 26 %; MCH 28.7 pg (25.0-35.0); MCHC 30.1 g/dL (31.0-37.0); MCV 95.6 fL (80.0-100.0); Mean Platelet Volume 7.5; Monocytes # (A) 0.4 k/uL (0-1.0); Monocytes % (A) 5 %; Neutrophils # (A) 4.7 k/uL (1.3-7.7); Neutrophils % (A) 63 %; Platelet Count 207 k/uL (150-450); RDW 13.9 % (11.5-15.5); WBC 7.4 k/uL (3.8-10.6)
== END | disposition home or self-care (01) ==
LOC: LABWHC1 11:53
PROVIDERS: ATTEND Family Medicine
DX: D72.829 Elevated white blood cell count, unspecified (principal); R79.9 Abnormal finding of blood chemistry, unspecified
CPT/HCPCS: 36415; 85025

== ENCOUNTER 2019-10-20 10:10 | Day surgery (SDC) | payer MEDICARE ==
[2019-10-15 13:26] VITALS: BMI 27.5
[~2019-10-20 10:10] MED LIST changes: -ALPRAZolam 0.25 MG TAB PO PRN; -ALPRAZolam 0.5 MG TAB PO PRN; -ASPIRIN 325 MG TAB PO STA; -ATORVASTATIN 80 MG TAB PO STA; +DEXAMETHASONE SOD PHOSPHATE 10 MG/ML 1 ML VIAL IV ONE; +HYDROmorphone 0.5 MG/0.5 ML SYRINGE IVP PRN; +LACTATED RINGERS 1,000 ML IV SCH; +LIDOCAINE 1% (10MG/ML) FOR IV START INTRADERMA PRN; -NITROGLYCERIN SL TABS 0.4 MG TAB SUBLINGUAL PRN; +ONDANSETRON 4 MG/2 ML VIAL IVP ONE; +Pre Op ABX Message 1 EACH MISC MISCELLANE ONE
[2019-10-20] MEDS ORDERED: MIDAZOLAM 2 MG/2 ML VIAL IVP ONE (10:11)
[2019-10-20] MEDS ORDERED: fentaNYL (PF) 50 MCG/ML 2 ML AMP IVP ONE (10:11)
[2019-10-20 10:44] VITALS: RESP 16; TEMP 97.1
[2019-10-20] MEDS ORDERED: ONDANSETRON 4 MG/2 ML VIAL ONE (10:51)
[2019-10-20 11:04] LABS: Glucose,Whole Blood 101 mg/dL (75-99)
--- NOTE | 2019-10-20 12:24 | NM ---
EXAMINATION TYPE: NM sentinel node injection DATE OF EXAM: 10/20/2019 COMPARISON: Correlation 09/04/2019 mammogram and ultrasound HISTORY: 73-year-old female biopsy-proven right breast cancer referred for sentinel node injection. TECHNIQUE AND FINDINGS: The procedure of sentinel lymph node injection was explained to the patient. The benefits, alternatives, and risks were discussed. An informed consent was then obtained. Overlying skin is cleaned with sterile alcohol. Following this, 520 uCi Tc 99m Tilmanocept was inject ed surrounding the outer aspect of the right nipple intradermally. The patient tolerated the procedure well without any immediate complication. The patient was kept in the radiology department for short stay after the procedure and then taken to surgery for surgical p rocedure what is presumed intraoperative gamma probe will be used for sentinel lymph node detection. IMPRESSION: Successful right breast radiotracer injection for sentinel node localization as above.
[2019-10-20] MEDS ORDERED: MIDAZOLAM 2 MG/2 ML VIAL ONE (12:30)
[2019-10-20] MEDS ORDERED: GLYCOPYRROLATE 0.2 MG/ML 2 ML VIAL ONE (12:30)
[2019-10-20] MEDS ORDERED: KETAMINE 10 MG/ML 20 ML VIAL ONE (12:30)
[2019-10-20] MEDS ORDERED: LIDOCAINE 1% INJ 10MG/ML (20 ML MDV) ONE (12:30)
[2019-10-20] MEDS ORDERED: fentaNYL (PF) 50 MCG/ML 2 ML AMP ONE (12:30)
[2019-10-20] MEDS ORDERED: PROPOFOL 10 MG/ML 20 ML VIAL IV ONE (12:30)
[2019-10-20] MEDS ORDERED: LIDOCAINE 0.5%-EPI 1:200,000 50 ML VIAL SQ ONE ×2 (13:03)
[2019-10-20] MEDS ORDERED: BUPIVACAINE (PF) 0.25% 30 ML VIAL SQ ONE ×2 (13:03)
--- NOTE | 2019-10-20 14:27 | P.OP ---
Date of Procedure: 10/20/19 Preoperative Diagnosis: Breast cancer Postoperative Diagnosis: Breast cancer Procedure(s) Performed: Right lumpectomy with sentinel lymph node biopsy Anesthesia: MAC, local Surgeon: Cammie Alex Estimated Blood Loss (ml): 15 Pathology: other ([place] lymph node and lumpectomy) Condition: stable Disposition: PACU Indications for Procedure: The patient presented with a palpable lump in her right breast biopsy was performed showing a breast cancer. Description of Procedure: The patient's taken the operative suite where she is prepped and draped in the usual sterile manner under IV sedation. Starting in the axilla local was instilled into the skin and subcutaneous tissue. The sentinel lymph node probe was then used to localize the sentinel lymph node. The count at the skin level was 12. The primary lymph node in vivo had a count of 24 and ex vivo count of 58. There was an additional small lymph node with a in vivo count of about 12 and ex vivo count of about 12. None the lymph nodes were markedly suspicious. The lymph nodes were sent for frozen section. Incision was closed with 4-0 Vicryl in a subcuticular manner and the area was covered with a towel. A small incision was then made in the inner lower quadrant of the breast. Some of the skin was tightly adherent to the mass. A small ellipse of skin was removed with the underlying breast specimen. Flaps were raised over the mass. Then the breast tissue is dissected down to the pectoralis fascia and the mass was excised, tagged and sent for pathology. Small bleeding points were controlled with [id number] sutures of 3-0 Vicryl. Some very small areas were controlled with limited cautery. The breast tissue was then reapproximated using 3-0 Vicryl. The skin incision was closed with 4-0 Vicryl in a subcuticular manner. The report of the sentinel lymph nodes was negative for metastatic disease. Steri-Strips and dressings were applied. She tolerated the procedure without difficulty and was taken to recovery room in satisfactory condition. According to or personnel, all counts WERE correct. Plan - Discharge Summary Discharge Rx Participant: No New Discharge Prescriptions: New traMADol HCL 50 - 100 mg PO Q6HR PRN #20 tablet PRN Reason: Pain No Action Losartan [Cozaar] 25 mg PO Q48H Cholecalciferol [Vitamin D3 (25 Mcg = 1000 Iu)] 1,000 unit PO DAILY Insulin Glargine [Lantus] 50 unit SQ HS Metoprolol Tartrate [Lopressor] 50 mg PO DAILY Cyanocobalamin (Vitamin B-12) [Vitamin B-12] 1,000 mcg PO DAILY Furosemide [Lasix] 20 mg PO DAILY Glimepiride [Amaryl] 1 mg PO DAILY Atorvastatin [Lipitor] 40 mg PO HS Brimonidine Tartrate [Alphagan P 0.2% Ophth Soln] 1 drops BOTH EYES BID allopurinoL [Zyloprim] 100 mg PO DAILY Nitroglycerin Sl Tabs [Nitrostat] 0.4 mg SUBLINGUAL Q5M PRN tab PRN Reason: Chest Pain Aspirin [Adult Low Dose Aspirin EC] 81 mg PO DAILY #0 metFORMIN HCL [Glucophage] 500 mg PO BID #0 Metoprolol Tartrate [Lopressor] 25 mg PO HS Discharge Medication List Cholecalciferol [Vitamin D3 (25 Mcg = 1000 Iu)] 1,000 unit PO DAILY 04/22/15 [History] Cyanocobalamin (Vitamin B-12) [Vitamin B-12] 1,000 mcg PO DAILY 04/22/15 [History] Insulin Glargine [Lantus] 50 unit SQ HS 04/22/15 [History] Losartan [Cozaar] 25 mg PO Q48H 04/22/15 [History] Metoprolol Tartrate [Lopressor] 50 mg PO DAILY 04/22/15 [History] Furosemide [Lasix] 20 mg PO DAILY 11/15/15 [History] Atorvastatin [Lipitor] 40 mg PO HS 09/26/16 [History] Glimepiride [Amaryl] 1 mg PO DAILY 09/26/16 [History] Brimonidine Tartrate [Alphagan P 0.2% Ophth Soln] 1 drops BOTH EYES BID 05/24/18 [History] allopurinoL [Zyloprim] 100 mg PO DAILY 05/24/18 [History] Aspirin [Adult Low Dose Aspirin EC] 81 mg PO DAILY #0 05/31/18 [Rx] Nitroglycerin Sl Tabs [Nitrostat] 0.4 mg SUBLINGUAL Q5M PRN tab 05/31/18 [Rx] metFORMIN HCL [Glucophage] 500 mg PO BID #0 05/31/18 [Rx] Metoprolol Tartrate [Lopressor] 25 mg PO HS 10/13/19 [History] traMADol HCL 50 - 100 mg PO Q6HR PRN #20 tablet 10/20/19 [Rx] Follow up Appointment(s)/Referral(s): Cammie Alex DO [Doctor of Osteopathic Medicine] - 1 Week Activity/Diet/Wound Care/Special Instructions: Keeps the dressings on until Sunday. They then may be removed and you may shower. Ice to the incisions for 1-2 days. Use a well supporting bra. You may take Tylenol or Motrin instead of the pain pills. Expect some bruising. Call if you develop fever, chills, concerns of wound infection or other concerns Discharge Disposition: HOME SELF-CARE
[2019-10-20 14:53] LABS: Glucose,Whole Blood 100 mg/dL (75-99)
[2019-10-20 16:03] VITALS: BP 160/66; PULSE 72
--- NOTE | 2019-10-22 08:40 | CDI ---
Date: 10.22.2019 CDS/Behavioral Health Case Manager Name: Lili Staples Phone: If any questions, call [facility] [place] [employer] at [phone] Patient Name: Lili Magaña Admit Date 10.20.19 Discharge Date: 10.20.19 ATTENTION: The [facility] Coding Staff appreciate your assistance in clarifying documentation. Please respond to the clarification below the line at the bottom and electronically sign. The [facility] Coding staff will review the response and follow-up if needed. Please note: Queries are made part of the Legal Health Record. If you have any questions, please contact the [employer] Letter [employer]. Dear Dr. Alex You documented in your OP report that the sentinel nodes were sent for frozen section. In order to code to the greatest specificity and for the greatest reimbursement, can you please document the depth of the lymph node biopsy: __Deep axillary _x_superficial axillary Thank you for your kind consideration. MTDD
== END 2019-10-20 16:45 | disposition home or self-care (01) ==
LOC: OR 10:10
PROVIDERS: ATTEND Surgery
DX: C50.311 Malignant neoplasm of lower-inner quadrant of right female breast (principal); I11.9 Hypertensive heart disease without heart failure; E11.9 Type 2 diabetes mellitus without complications; J45.909 Unspecified asthma, uncomplicated; I25.2 Old myocardial infarction; E78.00 Pure hypercholesterolemia, unspecified; K08.89 Other specified disorders of teeth and supporting structures; K08.409 Partial loss of teeth, unspecified cause, unspecified class; R06.02 Shortness of breath; Z17.0 Estrogen receptor positive status [ER+]; Z98.890 Other specified postprocedural states; Z87.448 Personal history of other diseases of urinary system; Z95.1 Presence of aortocoronary bypass graft; Z90.49 Acquired absence of other specified parts of digestive tract; Z87.891 Personal history of nicotine dependence; Z79.899 Other long term (current) drug therapy; Z79.4 Long term (current) use of insulin; Z79.02 Long term (current) use of antithrombotics/antiplatelets; Z91.048 Other nonmedicinal substance allergy status; Z95.810 Presence of automatic (implantable) cardiac defibrillator; Z95.5 Presence of coronary angioplasty implant and graft; Z80.8 Family history of malignant neoplasm of other organs or systems; Z83.3 Family history of diabetes mellitus
CPT/HCPCS: 19301; 38500; 88342; 88331; 88307; 88341; 38792; A9520; J2250; J1100; J2405; J2001; J3010; J2704

== ENCOUNTER → 2019-12-31 | Outpatient (CLI) | payer MEDICARE ==
--- NOTE | 2019-12-31 15:21 | BD ---
EXAMINATION TYPE: Axial Bone Density DATE OF EXAM: 12/31/2019 COMPARISON: NONE CLINICAL HISTORY: Height: 66 IN Weight: 171 LBS FRAX RISK QUESTIONS: History of Fracture in Adulthood: LT ANKLE Secondary Osteoporosis: 3. Menopause before 45: YES TOTAL HYST AGE 38 RISK FACTORS HISTORY OF: Active: YES Postmenopausal woman: TOTAL HYST AGE 38 MEDICATIONS: Additional Medications: VIT D, VIT B12, EYE DROPS, NEUROPATHY MEDS, NITRO,DIABETES, GABAPENTIN, ATORV ASTATIN, METOPROLOL, , ALLOPURINOL,LOSARTAN, FUROSEMIDE, ASPIRIN, STOOL SOFTENER, LANTUS Additional History: BREAST CANCER WITH RADIATION EXAM MEASUREMENTS: Bone mineral densitometry was performed using the [employer] PREVENTIVE MEDICINE System. Bone mineral density as measured about the Lumbar spine is: ----- L1-L4(G/cm2): 1.157 T Score Values are as follows: ----- L2: -0.2 ----- L3: 0.1 ----- L4: -0.1 ----- L1-L4: -0.2 Bone mineral density BASELINE Bone mineral density about the R hip (g/cm2): 0.734 Bone mineral density about the L hip (g/cm2): 0.809 T Score values are as follows: -----R Neck: -2.2 -----L Neck: -1.6 -----R Total: -1.5 -----L Total: -1.5 Bone mineral density BASELINE IMPRESSION: Osteopenia (T Score between -2.5 and -1). There is slightly increased risk of fracture and the patient may be considered for treatment. Re-Screen 2-5 years. NOTE: T-SCORE=SD OF THE YOUNG ADULT MEAN.
== END | disposition home or self-care (01) ==
LOC: RADBDWWP 14:06
PROVIDERS: ATTEND Internal Medicine Hematology & Oncology
DX: M85.80 Other specified disorders of bone density and structure, unspecified site (principal); C50.311 Malignant neoplasm of lower-inner quadrant of right female breast; Z88.3 Allergy status to other anti-infective agents; Z92.21 Personal history of antineoplastic chemotherapy
CPT/HCPCS: 77080

== ENCOUNTER → 2020-06-28 | Outpatient (CLI) | payer MEDICARE ==
--- NOTE | 2020-06-28 10:05 | MM ---
Reason for exam: follow-up at short interval from prior study. Last mammogram was performed 10 months ago. History: Patient is postmenopausal and has history of breast cancer at age 73. Family history of breast cancer in daughter at age 38. Lumpectomy of the right breast, 2019. Radiation therapy of the right breast, 2019. Physical Findings: Nurse did not find any significant physical abnormalities on exam. MG 3D Diag Mammo W/Cad ZAKIA Bilateral CC and MLO view(s) were taken. Prior study comparison: September 04, 2019, bilateral MG 3d diag mammo w/cad ZAKIA. June 03, 2013, mammogram, performed at [place]. The breast tissue is heterogeneously dense. This may lower the sensitivity of mammography. Finding: There are grouped/clustered calcifications in the upper outer quadrant of the left breast. There are benign appearing bilateral calcifications. Post surgical changes on the right breast. These results were verbally communicated with the patient and result sheet given to the patient on 06/28/20. ASSESSMENT: Suspicious, BI-RAD 4 RECOMMENDATION: Stereotactic core biopsy of the left breast. Called Dr. Espinoza's office with mammographic findings and has scheduled an appointment for the patient for 07/01/20 at 10:[address] Alex. PRELIMINARY REPORT CALLED AND FAXED TO DR. ALEX ON 06/28/20.
== END | disposition home or self-care (01) ==
LOC: RADMAMWWP 07:47
PROVIDERS: ATTEND Radiology Radiation Oncology
DX: R92.2 Inconclusive mammogram (principal); R92.1 Mammographic calcification found on diagnostic imaging of breast
CPT/HCPCS: 77066; G0279; 77062

== ENCOUNTER → 2020-10-13 | Outpatient (CLI) | payer MEDICARE ==
--- NOTE | 2020-10-14 09:24 | US ---
EXAMINATION TYPE: US kidneys/renal and bladder DATE OF EXAM: 10/13/2020 COMPARISON: CT 03/07/2019 CLINICAL HISTORY: 74-year-old female N18.32 CKD Stage III. EXAM MEASUREMENTS: Right Kidney: 9.0 x 4.1 x 4.0 cm Left Kidney: 9.6 x 4.7 x 3.9 cm Right Kidney: No hydronephrosis. Cyst visualized upper pole measuring 3.0 x 2.6 x 2.4 cm Left Kidney: No hydronephrosis. Cyst upper pole 2.6 x 2.2 x 2.3 cm. Low level internal echoes are fel t to be artifactual. Bladder: Under distention limits evaluation. Bilateral Jets seen: No IMPRESSION: No hydronephrosis. Benign cortical cyst on either side measuring up to 3.0 cm.
== END | disposition home or self-care (01) ==
LOC: RADUSWWP 15:47
PROVIDERS: ATTEND Internal Medicine Nephrology
DX: N18.32 Chronic kidney disease, stage 3b (principal); N28.1 Cyst of kidney, acquired
CPT/HCPCS: 76770

== ENCOUNTER → 2021-06-09 | Outpatient (CLI) | payer MEDICARE ==
--- NOTE | 2021-06-09 11:30 | US ---
EXAMINATION TYPE: US abdomen limited DATE OF EXAM: 06/09/2021 COMPARISON: Kidney ultrasound 10/13/2020. CT 03/07/2019. CLINICAL HISTORY: 75-year-old female R10.12 LEFT UPPER QUADRANT PAIN. Left side pain during doctor ex amination. Hx breast cancer. TECHNIQUE: Multiple sonographic images of the left upper quadrant are obtained. FINDINGS: EXAM MEASUREMENTS: Spleen: 11.7 cm Left Kidney: 9.1 x 4.2 x 4.4 cm 1. Spleen: A cyst at the midpole measures 1.5 x 1.6 x 1.4 cm 2. Left Kidney: Upper to mid pole cyst measures 2.9 x 2.5 x 2.7 cm. No hydronephrosis. IMPRESSION: 1. A benign cortical cyst in the left kidney measuring 2.9 cm. 2. A benign 1.6 cm cyst in the mid spleen also noted. Previously measured 9 mm on the 03/07/2019 CT.
== END | disposition home or self-care (01) ==
LOC: RADUSWWP 08:10
PROVIDERS: ATTEND Family Medicine
DX: R10.12 Left upper quadrant pain (principal)
CPT/HCPCS: 76705

== ENCOUNTER 2021-08-01 07:31 | Day surgery (SDC) | payer MEDICARE ==
[2021-07-27 16:33] VITALS: BMI 27.4
[~2021-08-01 07:31] MED LIST changes: -DEXAMETHASONE SOD PHOSPHATE 10 MG/ML 1 ML VIAL IV ONE; -HYDROmorphone 0.5 MG/0.5 ML SYRINGE IVP PRN; -ONDANSETRON 4 MG/2 ML VIAL IVP ONE; -Pre Op ABX Message 1 EACH MISC MISCELLANE ONE
--- NOTE | 2021-08-01 07:44 | P.GSHP ---
History of Present Illness H&P Date: 08/01/21 CHIEF COMPLAINT: Colon screen HISTORY OF PRESENT ILLNESS: The patient is a 75-year-old female who presents for colon screen. Lower endoscopy was offered for further evaluation and management. She reports having 7 stents and having a CABGx3. PAST MEDICAL HISTORY: Please see list. PAST SURGICAL HISTORY: Please see list. MEDICATIONS: Please see list. ALLERGIES: Please see list. SOCIAL HISTORY: No illicit drug use FAMILY HISTORY: No reports of Crohn disease or ulcerative colitis. REVIEW OF ORGAN SYSTEMS: CONSTITUTIONAL: No reports of fevers or chills. PHYSICAL EXAM: VITAL SIGNS: Stable GENERAL: Well-developed pleasant in no acute distress. HEENT: No scleral icterus. Extraocular movements grossly intact. Moist buccal mucosa. NECK: Supple without lymphadenopathy. CHEST: Unlabored respirations. Equal bilateral excursions. CARDIOVASCULAR: Regular rate and rhythm. Distal 2+ pulses. ABDOMEN: Soft, nontender, nondistended. MUSCULOSKELETAL: No clubbing, cyanosis, or edema. ASSESSMENT: 1. Colon screen. 2. Significant cardiac history with CABG. PLAN: 1. Recommend proceeding with a lower endoscopy 2. She is elevated risk for complications due to preexisting significant heart disease. Past Medical History Past Medical History: Asthma, Coronary Artery Disease (CAD), Cancer, Diabetes Mellitus, Eye Disorder, Hyperlipidemia, Hypertension, Myocardial Infarction ([place]), Renal Disease Additional Past Medical History / Comment(s): AICD, [facility]; breast cancer, stage 1, 2019, had radiation; edema Lt ankle, diabetic neuropathy, glaucoma bilat, kidney disease stage 3A; bruises easily Last Myocardial Infarction Date:: 2006 History of Any Multi-Drug Resistant Organisms: None Reported Past Surgical History: AICD, Appendectomy, Coronary Bypass/CABG, Heart Catheterization, Heart Catheterization With Stent, Hysterectomy, Orthopedic Surgery, Tonsillectomy Additional Past Surgical History / Comment(s): Ovary removal, removal of gallstones, hammertoe rt 5th toe, Triple CABG-2007, total 7 cardiac stents Past Anesthesia/Blood Transfusion Reactions: No Reported Reaction Additional Past Anesthesia/Blood Transfusion Reaction / Comment(s): Pt has received blood in the past without reaction. Date of Last Stent Placement:: 06/2015 Type of Cardiac Device: AICD Device Placement Date:: 2015 Smoking Status: Former smoker - Past Family History Mother Family Medical History: Cancer Additional Family Medical History / Comment(s): Mother of colon cancer at the age of 44 yrs. Brother(s) Family Medical History: Coronary Artery Disease (CAD), Diabetes Mellitus Father History Unknown: Yes Daughter(s) Family Medical History: Cancer Additional Family Medical History / Comment(s): BREAST CANCER Medications and Allergies Home Medications Medication Instructions Recorded Confirmed Type Cholecalciferol [Vitamin D3 (25 1,000 unit PO DAILY 04/22/15 07/27/21 History Mcg = 1000 Iu)] Cyanocobalamin (Vitamin B-12) 1,000 mcg PO DAILY 04/22/15 07/27/21 History [Vitamin B-12] Insulin Glargine [Lantus Vial] 50 unit SQ HS 04/22/15 07/27/21 History Metoprolol Tartrate [Lopressor] 50 mg PO DAILY 04/22/15 07/27/21 History Furosemide [Lasix] 40 mg PO DAILY 11/15/15 07/27/21 History Atorvastatin [Lipitor] 40 mg PO HS 09/26/16 07/27/21 History Glimepiride [Amaryl] 1 mg PO DAILY 09/26/16 07/27/21 History Brimonidine Tartrate [Alphagan P 1 drops BOTH EYES BID 05/24/18 07/27/21 History 0.2% Ophth Soln] allopurinoL [Zyloprim] 100 mg PO DAILY 05/24/18 07/27/21 History Aspirin [Adult Low Dose Aspirin EC] 81 mg PO DAILY #0 05/31/18 07/27/21 Rx Nitroglycerin Sl Tabs [Nitrostat] 0.4 mg SUBLINGUAL Q5M PRN tab 05/31/18 07/27/21 Rx metFORMIN HCL [Glucophage] 500 mg PO BID #0 05/31/18 07/27/21 Rx Metoprolol Tartrate [Lopressor] 25 mg PO HS 10/13/19 07/27/21 History Alendronate Sodium [Fosamax] 70 mg PO SA 07/27/21 07/27/21 History Anastrozole [Arimidex] 1 mg PO DAILY 07/27/21 07/27/21 History Gabapentin [Neurontin] 100 mg PO HS 07/27/21 07/27/21 History Allergies Allergy/AdvReac Type Severity Reaction Status Date / Time Iodinated Contrast Media Allergy Anaphylaxis Verified 07/27/21 16:05 [Iodinated Contrast Media - IV Dye]
[2021-08-01 07:51] VITALS: TEMP 97.7
[2021-08-01] MEDS ORDERED: LACTATED RINGERS 1,000 ML IV ONE (07:51)
[2021-08-01 07:59] LABS: Glucose,Whole Blood 123 mg/dL (75-99)
[2021-08-01] MEDS ORDERED: PROPOFOL 10 MG/ML 20 ML VIAL IV ONE (08:02)
--- NOTE | 2021-08-01 08:31 | P.PCN ---
Date of Procedure: 08/01/21 Description of Procedure: PREOPERATIVE DIAGNOSIS: Colonoscopy screening Family history colon cancer, mother History of CABG 3 History of coronary artery stenting 7 POSTOPERATIVE DIAGNOSIS: Colonoscopy screening. OPERATION: Colonoscopy to the cecum, ileocecal valve and appendiceal orifice. SURGEON: Kraime Maddox MD. ANESTHESIA: MAC. INDICATIONS: The patient is a 75-year-old female who presents for colonoscopy screening. Last colonoscopy over 10 years ago. Benefits and risks were described and informed consent was obtained. DESCRIPTION OF PROCEDURE: The patient had undergone Sutab prep. The patient had been brought into the operating room and laid in the left lateral decubitus position. After adequate intravenous sedation, the rectum was examined with 2% lidocaine jelly. No external hemorrhoids were encountered. The rectal tone was within normal limits. No lesions were palpated in the rectal vault. An Olympus colonoscope was advanced until the cecum, ileocecal valve and appendiceal orifice were clearly viewed. The prep was excellent. No diverticulosis was encountered. No colonic polyps were found. No evidence of focal colitis was found. Retroflexion of the scope demonstrated grade 1 internal hemorrhoids without active bleeding or inflammation. The colon was desufflated. The patient had tolerated the procedure well. Withdrawal time was over 6 minutes. FINDINGS: Aronchick preparation quality scale 1 (1-5) Internal hemorrhoids, grade 1 No external prolapsed hemorrhoids. No arteriovenous malformations. No adenomatous polyps. No focal colitis. No diverticulosis RECOMMENDATIONS: Lower endoscopy in 5 years, 2026 due to familial and genetic risks Plan - Discharge Summary Discharge Rx Participant: No New Discharge Prescriptions: Continue Cholecalciferol [Vitamin D3 (25 Mcg = 1000 Iu)] 1,000 unit PO DAILY Insulin Glargine [Lantus Vial] 50 unit SQ HS Metoprolol Tartrate [Lopressor] 50 mg PO DAILY Cyanocobalamin (Vitamin B-12) [Vitamin B-12] 1,000 mcg PO DAILY Furosemide [Lasix] 40 mg PO DAILY Glimepiride [Amaryl] 1 mg PO DAILY Atorvastatin [Lipitor] 40 mg PO HS Brimonidine Tartrate [Alphagan P 0.2% Ophth Soln] 1 drops BOTH EYES BID allopurinoL [Zyloprim] 100 mg PO DAILY Nitroglycerin Sl Tabs [Nitrostat] 0.4 mg SUBLINGUAL Q5M PRN tab PRN Reason: Chest Pain Aspirin [Adult Low Dose Aspirin EC] 81 mg PO DAILY #0 metFORMIN HCL [Glucophage] 500 mg PO BID #0 Metoprolol Tartrate [Lopressor] 25 mg PO HS Alendronate Sodium [Fosamax] 70 mg PO SA Gabapentin [Neurontin] 100 mg PO HS Anastrozole [Arimidex] 1 mg PO DAILY Discharge Medication List Cholecalciferol [Vitamin D3 (25 Mcg = 1000 Iu)] 1,000 unit PO DAILY 04/22/15 [History] Cyanocobalamin (Vitamin B-12) [Vitamin B-12] 1,000 mcg PO DAILY 04/22/15 [History] Insulin Glargine [Lantus Vial] 50 unit SQ HS 04/22/15 [History] Metoprolol Tartrate [Lopressor] 50 mg PO DAILY 04/22/15 [History] Furosemide [Lasix] 40 mg PO DAILY 11/15/15 [History] Atorvastatin [Lipitor] 40 mg PO HS 09/26/16 [History] Glimepiride [Amaryl] 1 mg PO DAILY 09/26/16 [History] Brimonidine Tartrate [Alphagan P 0.2% Ophth Soln] 1 drops BOTH EYES BID 05/24/18 [History] allopurinoL [Zyloprim] 100 mg PO DAILY 05/24/18 [History] Aspirin [Adult Low Dose Aspirin EC] 81 mg PO DAILY #0 05/31/18 [Rx] Nitroglycerin Sl Tabs [Nitrostat] 0.4 mg SUBLINGUAL Q5M PRN tab 05/31/18 [Rx] metFORMIN HCL [Glucophage] 500 mg PO BID #0 05/31/18 [Rx] Metoprolol Tartrate [Lopressor] 25 mg PO HS 10/13/19 [History] Alendronate Sodium [Fosamax] 70 mg PO SA 07/27/21 [History] Anastrozole [Arimidex] 1 mg PO DAILY 07/27/21 [History] Gabapentin [Neurontin] 100 mg PO HS 07/27/21 [History] Follow up Appointment(s)/Referral(s): Karime Maddox MD [STAFF PHYSICIAN] - 08/16/21 Patient Instructions/Handouts: *Sur[facility] - (Anesthesia) Endoscopy Discharge Instructions, Colonoscopy (DC) Activity/Diet/Wound Care/Special Instructions: Repeat colonoscopy in 5 years, 2026 Discharge Disposition: HOME SELF-CARE
[2021-08-01 08:48] VITALS: BP 122/59; PULSE 69; RESP 18
== END 2021-08-01 09:25 | disposition home or self-care (01) ==
LOC: ORWHC2ENDO 07:31
PROVIDERS: ATTEND Surgery Plastic and Reconstructive Surgery
DX: Z12.11 Encounter for screening for malignant neoplasm of colon (principal); K64.0 First degree hemorrhoids; I25.5 Ischemic cardiomyopathy; Z80.0 Family history of malignant neoplasm of digestive organs; E11.40 Type 2 diabetes mellitus with diabetic neuropathy, unspecified; I12.9 Hypertensive chronic kidney disease with stage 1 through stage 4 chronic kidney disease, or unspecified chronic kidney disease; E11.22 Type 2 diabetes mellitus with diabetic chronic kidney disease; N18.31 Chronic kidney disease, stage 3a; E78.5 Hyperlipidemia, unspecified; I25.10 Atherosclerotic heart disease of native coronary artery without angina pectoris; I25.2 Old myocardial infarction; Z82.49 Family history of ischemic heart disease and other diseases of the circulatory system; Z91.048 Other nonmedicinal substance allergy status; Z95.1 Presence of aortocoronary bypass graft; J45.909 Unspecified asthma, uncomplicated; Z80.3 Family history of malignant neoplasm of breast; Z83.3 Family history of diabetes mellitus; Z87.891 Personal history of nicotine dependence; Z90.49 Acquired absence of other specified parts of digestive tract; Z95.810 Presence of automatic (implantable) cardiac defibrillator; Z85.3 Personal history of malignant neoplasm of breast; Z92.3 Personal history of irradiation; Z86.69 Personal history of other diseases of the nervous system and sense organs; Z79.4 Long term (current) use of insulin; Z79.811 Long term (current) use of aromatase inhibitors; Z79.84 Long term (current) use of oral hypoglycemic drugs; Z79.82 Long term (current) use of aspirin; Z79.899 Other long term (current) drug therapy
CPT/HCPCS: J2704; G0105

== ENCOUNTER → 2021-10-12 | Outpatient (CLI) | payer MEDICARE ==
--- NOTE | 2021-10-12 10:55 | MM ---
Reason for Exam: Additional evaluation requested from prior study. Last mammogram was performed 1 year(s) and 3 month(s) ago. Patient History: Menarche at age 15. First Full-Term at age 18. Left ovary removed at age 38. Right ovary removed at age 38. Hysterectomy at age 38. Postmenopausal. Breast cancer, right, age 73. Previous chest radiation therapy. 2021, Excisional Biopsy on the Left side. 2019, Lumpectomy on the Right side. 2019, Radiation Therapy on the right side. Daughter had breast cancer, age 38. Prior Study Comparison: 10/27/2011 Screening Mammogram, [place]. 06/03/2013 Screening Mammogram, [place]. 09/04/2019 Bilateral Diagnostic Mammogram, [facility]. 06/28/2020 Bilateral Diagnostic Mammogram, [facility]. Tissue Density: The breast tissue is heterogeneously dense. This may lower the sensitivity of mammography. Findings: Analyzed By CAD. Postsurgical and posttreatment changes right breast. Generator device projects over the left pectoralis. Benign vascular and coil cyst calcifications bilaterally. The calcifications lateral posterior left cc view indicated on 06/28/2020 have been excised in the interval. Adjacent asymmetric density here disperses on additional views. No significant change from prior exams. Short interval follow-up right breast recommended to assess for any evolving posttreatment change. Overall Assessment: Probably benign, BI-RAD 3 Management: Diagnostic Mammogram of the right breast in 6 months. To assess for any evolving posttreatment change given lumpectomy and radiation in 2020. Patient should continue monthly self breast exams. Results were given to the patient verbally at the time of exam. Electronically signed and approved by: Nallely Cottrell M.D. Radiologist
== END | disposition home or self-care (01) ==
LOC: RADMAMWWP 08:48
PROVIDERS: ATTEND Internal Medicine Hematology & Oncology
DX: C50.311 Malignant neoplasm of lower-inner quadrant of right female breast (principal); Z85.3 Personal history of malignant neoplasm of breast
CPT/HCPCS: 77066; G0279; 77062

== ENCOUNTER → 2022-01-02 | Outpatient (CLI) | payer MEDICARE ==
--- NOTE | 2022-01-02 10:29 | BD ---
EXAMINATION TYPE: Axial Bone Density DATE OF EXAM: 01/02/2022 COMPARISON: 12/31/2019 CLINICAL HISTORY: 76 years old Female. ICD-10 CODE: C50.311 MALIG NEOPLM OF LOWER-INNER QUAD OF R Candy ALLAN Height: 66 Weight: 175 FRAX RISK QUESTIONS: Family History (Parent hip fracture): NO Glucocorticoids (More than 3mos): NO (Ex: prednisone, prednisolone, methylprednisolone, dexamethasone, and hydrocortisone). History of Fracture in Adulthood: YES Secondary Osteoporosis: NO Rheumatoid Arthritis: NO Current Tobacco Use: NO RISK FACTORS HISTORY OF: Family History of Osteoporosis: NO Active: NO Diet low in dairy products/other sources of calcium: YES Postmenopausal woman: YES PATIENT IS TAKING FOSAMAX FOR 1 YEAR Lost more than 2 inches in height since high school: YES Frequent falls: NO Poor Health: YES Adrenal Insufficiency: NO HAS STAGE 3A MEDICATIONS: Additional Medications: YES DIABETIC MEDS, VIT D , INSULIN FOSAMAX Additional History: BREAST CANCER RADIATION EXAM MEASUREMENTS: Bone mineral densitometry was performed using the [employer] System. Bone mineral density as measured about the Lumbar spine is: ----- L1-L4(G/cm2): 1.211 T Score Values are as follows: ----- L1: -0.4 ----- L2: 0.1 ----- L3: 0.5 ----- L4: 0.5 ----- L1-L4: 0.3 Bone mineral density has: Increased 4.7% since study of: 12/31/2019 Bone mineral density about the R hip (g/cm2): 0.828 Bone mineral density about the L hip (g/cm2): 0.821 T Score values are as follows: -----R Neck: 0.764 -----L Neck: 0.804 -----R Total: -1.4 -----L Total: -1.5 Bone mineral density has: Increased 0.6% since study of: 12/31/2019 FRAX%s: The graph provided illustrates a 19.4% chance for a major osteoporotic fx and a 4.6% chance f or the hips probability for fx in 10 years time. IMPRESSION: Osteopenia (T Score between -2.5 and -1). There is slightly increased risk of fracture and the patient may be considered for treatment. Re-Screen 2-5 years. NOTE: T-SCORE=SD OF THE YOUNG ADULT MEAN.
== END | disposition home or self-care (01) ==
LOC: RADBDWWP 09:18
PROVIDERS: ATTEND Internal Medicine Hematology & Oncology
DX: M85.89 Other specified disorders of bone density and structure, multiple sites (principal)
CPT/HCPCS: 77080

== ENCOUNTER → 2022-07-20 | Outpatient (CLI) | payer MEDICARE ==
--- NOTE | 2022-07-20 13:58 | US ---
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 Bilateral leg pain, with right posterior knee > left leg History of: Smoker: Previous Hypertension: Takes medication Diabetic: Yes Hyperlipidemia: Yes TIA/CVA: No Previous Vascular Surgery: No CAD: Yes PA: Yes Vascular Ulcers: No Claudication: No Gangrene: No Doppler Waveforms: Right: Monophasic Left: Monophasic to biphasic Pulse Volume Recording: Pressure Gradients: Right Brachial Pressure: 161 Left Brachial Pressure: 146 Ankle-Brachial Indices: Right: 0.63 Left: 1.0 Toe Brachial Indices: Right: 0.42 Left: 0.7 IMPRESSION: Diminished right-sided values consistent with at least moderate peripheral arterial dise ase in the right lower extremity. Further workup and follow-up advised.
== END | disposition home or self-care (01) ==
LOC: RADUSWWP 10:04
PROVIDERS: ATTEND Family Medicine
DX: I73.9 Peripheral vascular disease, unspecified (principal); E11.51 Type 2 diabetes mellitus with diabetic peripheral angiopathy without gangrene; E78.5 Hyperlipidemia, unspecified; M79.605 Pain in left leg; M79.604 Pain in right leg; I10 Essential (primary) hypertension; I25.10 Atherosclerotic heart disease of native coronary artery without angina pectoris; Z87.891 Personal history of nicotine dependence; Z95.5 Presence of coronary angioplasty implant and graft
CPT/HCPCS: 93923

== ENCOUNTER → 2022-11-06 | Outpatient (CLI) | payer MEDICARE ==
--- NOTE | 2022-11-07 22:27 | MM ---
Reason for Exam: Screening (asymptomatic). Last mammogram was performed 1 year(s) and 1 month(s) ago. Patient History: Menarche at age 15. First Full-Term at age 18. Left ovary removed at age 38. Right ovary removed at age 38. Hysterectomy at age 38. Postmenopausal. Breast cancer, right, age 73. Previous chest radiation therapy at age 73. 2021, Excisional Biopsy on the Left side. 2019, Lumpectomy on the Right side. 2019, Radiation Therapy on the right side. Daughter had breast cancer, age 38. Prior Study Comparison: 06/28/2020 Bilateral Diagnostic Mammogram, [facility]. 10/12/2021 Bilateral MG 3D diag mammo w/cad ZAKIA, [facility]. 04/17/2022 Right MG 3D diag mammo w/cad RT, [facility]. Tissue Density: The breast tissue is heterogeneously dense. This may lower the sensitivity of mammography. Findings: Analyzed By CAD. Benign vascular and oil cyst calcifications. Post surgical change right breast. Generator device projects over the left pectoralis. No significant change from prior exams. There is no suspicious group of microcalcifications or new suspicious mass in either breast. Overall Assessment: Benign, BI-RAD 2 Management: Screening Mammogram of both breasts in 1 year. . Patient should continue monthly self-breast exams. A clinical breast exam by your physician is recommended on an annual basis. This exam should not preclude additional follow-up of suspicious palpable abnormalities. Electronically signed and approved by: Nallely Cottrell M.D. Radiologist
== END | disposition home or self-care (01) ==
LOC: RADMAMWWP 14:56
PROVIDERS: ATTEND Internal Medicine Hematology & Oncology
DX: Z12.31 Encounter for screening mammogram for malignant neoplasm of breast (principal); C50.311 Malignant neoplasm of lower-inner quadrant of right female breast; M85.9 Disorder of bone density and structure, unspecified; I25.10 Atherosclerotic heart disease of native coronary artery without angina pectoris; Z71.3 Dietary counseling and surveillance; Z78.0 Asymptomatic menopausal state; Z80.3 Family history of malignant neoplasm of breast
CPT/HCPCS: 77063; 77067

== ENCOUNTER → 2024-01-29 | Outpatient (CLI) | payer MEDICARE ==
--- NOTE | 2024-01-29 12:27 | BD ---
EXAMINATION TYPE: Axial Bone Density DATE OF EXAM: 01/29/2024 CLINICAL HISTORY: 78 years old Female. ICD-10 CODE: M85.9 OSTEOPENIA , Additional History: Height: 5 ft 6 1/4 in Weight: 165 FRAX RISK QUESTIONS: Alcohol (3 or more units per day): no Family History (Parent hip fracture): no Glucocorticoids (More than 3mos): no (Ex: prednisone, prednisolone, methylprednisolone, dexamethasone, and hydrocortisone). History of Fracture in Adulthood: yes Secondary Osteoporosis: 1. Type 1 Diabetes: type 2 2. Hyperthyroidism: no 3. Menopause before 45: no 4. Malnutrition: no 5. Chronic liver disease: no Rheumatoid Arthritis: no Current Tobacco Use: former RISK FACTORS HISTORY OF: Surgery to Spine/Hip(right/left)/Wrist (right/left): MEDICATIONS: Thyroid Medications: none Osteoporosis Medications: none EXAM MEASUREMENTS: Bone mineral densitometry was performed using the [employer] System. Bone mineral density as measured about the Lumbar spine is: ----- L1-L4(G/cm2): 1.204 T Score Values are as follows: ----- L1: -0.7 ----- L2: -0.4 ----- L3: 0.5 ----- L4: 1.1 ----- L1-L4: 0.2 Z Score Values are as follows: ----- L1: 0.7 ----- L2: 1.1 ----- L3: 1.9 ----- L4: 2.5 ----- L1-L4: 1.7 Bone mineral density has: decreased -0.6 % since study of: 2021 Bone mineral density about the R hip (g/cm2): 0.790 Bone mineral density about the L hip (g/cm2): 0.832 T Score values are as follows: -----R Neck: -1.8 -----L Neck: -1.5 -----R Total: -1.6 -----L Total: -1.4 Z Score values are as follows: -----R Neck: 0.0 -----L Neck: 0.3 -----R Total: 0.0 -----L Total: 0.2 Bone mineral density has: decreased -0.6 % since study of: 2021 FRAX%s: The graph provided illustrates a 19.9 % chance for a major osteoporotic fx and a 4.6 % chanc e for the hips probability for fx in 10 years time. IMPRESSION: Osteopenia (T Score between -2.5 and -1). There is slightly increased risk of fracture and the patient may be considered for treatment. Re-Screen 2-5 years. NOTE: T-SCORE=SD OF THE YOUNG ADULT MEAN. [facility], , 01/29/2024 12:24 PM
--- NOTE | 2024-01-30 17:17 | MM ---
Reason for Exam: Screening (asymptomatic). Last mammogram was performed 1 year(s) and 3 month(s) ago. Patient History: Menarche at age 15. First Full-Term at age 18. Left ovary removed at age 38. Right ovary removed at age 38. Hysterectomy at age 38. Postmenopausal. Breast cancer, right, age 73. Previous chest radiation therapy at age 73. 2021, Excisional Biopsy on the Left side. 2019, Lumpectomy on the Right side. 2019, Radiation Therapy on the right side. Daughter had breast cancer, age 38. Prior Study Comparison: 10/12/2021 Bilateral MG 3D diag mammo w/cad ZAKIA, [facility]. 04/17/2022 Right MG 3D diag mammo w/cad RT, [facility]. 11/06/2022 Bilateral MG 3D screening mammo w/cad, [facility]. Tissue Density: The breasts are heterogeneously dense, which may obscure small masses. Findings: Analyzed By CAD. Postsurgical and posttreatment changes right breast. Benign bilateral vascular and oil cyst calcifications. Postsurgical scar posterior inner right breast redemonstrated. Generator device at the left axilla on the MLO view. Multiple areas of asymmetric density in both breasts are unchanged. Areas of underlying chronic nodularity on the right. There is no suspicious group of microcalcifications or new suspicious mass in either breast. Overall Assessment: Benign, BI-RAD 2 Management: Screening Mammogram of both breasts in 1 year. Patient should continue monthly self-breast exams. A clinical breast exam by your physician is recommended on an annual basis. This exam should not preclude additional follow-up of suspicious palpable abnormalities. Note on Mable scores and lifetime risk: 1. A Mable score greater than 3% is considered moderate risk. If this is the case, consider specialist referral to assess eligibility for a risk reducing agent. 2. If overall lifetime risk for the development of breast cancer is 20% or higher, the patient may qualify for future screening with alternating mammogram and breast MRI. [facility], , 01/30/2024 5:14 PM. Electronically signed and approved by: Nallely Cottrell M.D. Radiologist
== END | disposition home or self-care (01) ==
LOC: RADMAMWWP 10:43
PROVIDERS: ATTEND Internal Medicine Hematology & Oncology
DX: Z12.31 Encounter for screening mammogram for malignant neoplasm of breast (principal); I25.10 Atherosclerotic heart disease of native coronary artery without angina pectoris; I42.9 Cardiomyopathy, unspecified; I10 Essential (primary) hypertension; E78.5 Hyperlipidemia, unspecified; M85.9 Disorder of bone density and structure, unspecified; C50.311 Malignant neoplasm of lower-inner quadrant of right female breast; Z71.3 Dietary counseling and surveillance; E11.9 Type 2 diabetes mellitus without complications; M85.80 Other specified disorders of bone density and structure, unspecified site; Z79.4 Long term (current) use of insulin
CPT/HCPCS: 77063; 77067; 77080

== ENCOUNTER 2024-05-25 11:52 | Emergency (ER) | payer MEDICARE ==
--- NOTE | 2024-05-25 12:29 | ED ---
Fall HPI - General Chief Complaint: Fall Stated Complaint: Fall-Head/R foot injury Time Seen by Provider: 05/25/24 12:10 Source: patient, RN notes reviewed Mode of arrival: wheelchair - History of Present Illness Initial Comments: This is a 78-year-old female presents emergency department after mechanical fall. Patient states that she was walking down her steps when she missed the last 4 causing her to fall forward onto her knees. Patient states that there is a door in front of the stairs that she hit the right side of her head on. She denies loss of conscious at the time of the fall. Patient is endorsing pain over the right foot and over the right forehead. Is currently denying blurry double vision, dizziness, headedness, neck pain. Patient states that she has pain while weightbearing on the right foot. Denies blood thinner use. No other acute complaints at this time. - Related Data Home Medications Medication Instructions Recorded Confirmed Cholecalciferol [Vitamin D3 (25 1,000 unit PO DAILY 04/22/15 07/27/21 Mcg = 1000 Iu)] Cyanocobalamin (Vitamin B-12) 1,000 mcg PO DAILY 04/22/15 07/27/21 [Vitamin B-12] Insulin Glargine (Lantus) [Lantus 50 unit SQ HS 04/22/15 07/27/21 Vial] Metoprolol Tartrate [Lopressor] 50 mg PO DAILY 04/22/15 07/27/21 Furosemide [Lasix] 40 mg PO DAILY 11/15/15 07/27/21 Atorvastatin [Lipitor] 40 mg PO HS 09/26/16 07/27/21 Glimepiride [Amaryl] 1 mg PO DAILY 09/26/16 07/27/21 Brimonidine Tartrate [Alphagan P 1 drops BOTH EYES BID 05/24/18 07/27/21 0.2% Ophth Soln] allopurinoL [Zyloprim] 100 mg PO DAILY 05/24/18 07/27/21 Metoprolol Tartrate [Lopressor] 25 mg PO HS 10/13/19 07/27/21 Alendronate Sodium [Fosamax] 70 mg PO SA 07/27/21 07/27/21 Anastrozole [Arimidex] 1 mg PO DAILY 07/27/21 07/27/21 Gabapentin [Neurontin] 100 mg PO HS 07/27/21 07/27/21 Previous Rx's Medication Instructions Recorded Aspirin [Adult Low Dose Aspirin EC] 81 mg PO DAILY #0 05/31/18 Nitroglycerin Sl Tabs [Nitrostat] 0.4 mg SUBLINGUAL Q5M PRN tab 05/31/18 metFORMIN HCL [Glucophage] 500 mg PO BID #0 05/31/18 Allergies Allergy/AdvReac Type Severity Reaction Status Date / Time Iodinated Contrast Media Allergy Anaphylaxis Verified 05/25/24 12:07 [Iodinated Contrast Media - IV Dye] Review of Systems ROS Statement: Those systems with pertinent positive or pertinent negative responses have been documented in the HPI. ROS Other: All systems not noted in ROS Statement are negative. Past Medical History Past Medical History: Asthma, Diabetes Mellitus, Eye Disorder, Hyperlipidemia, Myocardial Infarction (MD) Additional Past Medical History / Comment(s): ankle swelling, see Dr Gonzalez H&P, diabetic neuropathy, glaucoma Last Myocardial Infarction Date:: 2006 History of Any Multi-Drug Resistant Organisms: None Reported Past Surgical History: AICD, Appendectomy, Coronary Bypass/CABG, Heart Catheterization, Heart Catheterization With Stent, Hysterectomy, Orthopedic Surgery, Tonsillectomy Additional Past Surgical History / Comment(s): removal of gallstones, hammertoe rt foot, CABG-2008, total 5 cardiac stents Past Anesthesia/Blood Transfusion Reactions: No Reported Reaction Additional Past Anesthesia/Blood Transfusion Reaction / Comment(s): Pt has received blood in the past without reaction. Date of Last Stent Placement:: 06/2015 Type of Cardiac Device: AICD Device Placement Date:: 2015 Past Psychological History: No Psychological Hx Reported Smoking Status: Former smoker - Past Family History Mother Family Medical History: Cancer Additional Family Medical History / Comment(s): Mother of colon cancer at the age of 44 yrs. Brother(s) Family Medical History: Coronary Artery Disease (CAD), Diabetes Mellitus Father History Unknown: Yes Daughter(s) Family Medical History: Cancer Additional Family Medical History / Comment(s): BREAST CANCER General Exam Limitations: no limitations General appearance: alert, in no apparent distress Head exam: Present: other (right forehead hematoma) Eye exam: Present: normal appearance, PERRL, EOMI. Absent: scleral icterus, conjunctival injection, periorbital swelling ENT exam: Present: normal exam, mucous membranes moist Respiratory exam: Present: normal lung sounds bilaterally. Absent: respiratory distress, wheezes, rales, rhonchi, stridor Cardiovascular Exam: Present: regular rate, normal rhythm, normal heart sounds. Absent: systolic murmur, diastolic murmur, rubs, gallop, clicks GI/Abdominal exam: Present: soft, normal bowel sounds. Absent: distended, tenderness, guarding, rebound, rigid Right Foot/Toe exam: Present: tenderness, swelling, ecchymosis. Absent: deformity, dislocation, erythema, amputation Neurovascular tendon exam: Present: no vascular compromise. Absent: pulse deficit Gait: not tested/not observed Back exam: Present: normal inspection Neurological exam: Present: alert, oriented X3, CN II-XII intact Course Vital Signs 05/25/24 12:02 Temperature 97.8 F Pulse Rate 86 Respiratory 17 Rate Blood Pressure 110/66 O2 Sat by Pulse 97 Oximetry Medical Decision Making - Medical Decision Making Was pt. sent in by a medical professional or institution (Dr. PA, IMPLEMENTATION MANAGER, urgent care, hospital, or penitentiary...) When possible be specific @ -No Did you speak to anyone other than the patient for history (EMS, parent, family, police, friend...)? What history was obtained from this source @ -No Did you review nursing and triage notes (agree or disagree)? Why? @ -I reviewed and agree with nursing and triage notes Were old charts reviewed (outside hosp., previous admission, EMS record, old EKG, old radiological studies, urgent care reports/EKG's, penitentiary records)? Report findings @ -No old charts were reviewed Differential Diagnosis (chest pain, altered mental status, abdominal pain women, abdominal pain men, vaginal bleeding, weakness, fever, dyspnea, syncope, headache, dizziness, GI bleed, back pain, seizure, CVA, palpatations, mental health, musculoskeletal)? @ -Differential Musculoskeletal Muscular strain, contusion, ligament sprain, fracture, arthritis, septic arthritis, bursitis, cellulitis, muscle spasm, nerve compression, DVT, arterial occlusion, herpes zoster, electrolyte abnormality, tumor.... This is not meant to be in all inclusive list EKG interpreted by me (3pts min.). @ -none X-rays interpreted by me (1pt min.). @ -X-ray of the right foot reveals fractures at the base of the fifth metatarsal with mildly displaced distal fourth metatarsal fracture x-ray of the right ankle no ankle trauma with a nondisplaced fracture of the proximal aspect of the fifth metatarsal CT interpreted by me (1pt min.). @ -CT of the brain and C-spine without contrast reveals a right frontal cephalohematoma with no evidence of calvarial fracture, no acute bleed or mass effect, mild degenerative disc disease with no evidence of cervical spine trauma U/S interpreted by me (1pt. min.). @ -None done What testing was considered but not performed or refused? (CT, X-rays, U/S, labs)? Why? @ -None What meds were considered but not given or refused? Why? @ -None Did you discuss the management of the patient with other professionals (prof maria i.e. , PA, IMPLEMENTATION MANAGER, lab, RT, psych nurse, aids social worker, tierce filler, teacher, uniform patrol police officer, assistant case manager)? Give summary @ -No Was smoking cessation discussed for >3mins.? @ -No Was critical care preformed (if so, how long)? @ -No Were there social determinants of health that impacted care today? How? (Homelessness, low income, unemployed, alcoholism, drug addiction, transportation, low edu. Level, literacy, decrease access to med. care, penitentiary, rehab)? @ -No Was there de-escalation of care discussed even if they declined (Discuss DNR or withdrawal of care, Hospice)? DNR status @ -No What co-morbidities impacted this encounter? (DM, HTN, Smoking, COPD, CAD, Cancer, CVA, ARF, Chemo, Hep., AIDS, mental health diagnosis, sleep apnea, morbid obesity)? @ -None Was patient admitted / discharged? Hospital course, mention meds given and route, prescriptions, significant lab abnormalities, going to OR and other pertinent info. @ -Discharge. 78 year old female presenting for complaint of a fall. There is noted hematoma over the right side of the forehead. Neurological examination completed with no acute deficits. There is mild ecchymosis noted over the anterior mid right forefoot. Neurovascularly intact. X-ray concerning for a nondisplaced fracture of the proximal aspect of the fifth metatarsal and fourth mildly displaced metatarsal fracture. CT reveals a right frontal cephaloh ematoma with no evidence of skull fracture, brain bleed or cervical spine fracture. Patient is placed in a short leg posterior splint and instructed to maintain nonweightbearing status to follow-up with wound specialist. Recommend she continue supportive treatment at home. review specialist referral provided. Case discussed with Dr. Perez Undiagnosed new problem with uncertain prognosis? @ -No Drug Therapy requiring intensive monitoring for toxicity (Heparin, Nitro, Insulin, Cardizem)? @ -No Were any procedures done? @ -No Diagnosis/symptom? @ -hematoma, foot fracture Acute, or Chronic, or Acute on Chronic? @ -acute Uncomplicated (without systemic symptoms) or Complicated (systemic symptoms)? @ -uncomplicated Side effects of treatment? @ -No Exacerbation, Progression, or Severe Exacerbation? @ -No Poses a threat to life or bodily function? How? (Chest pain, USA, MD, pneumonia, PE, COPD, DKA, ARF, appy, cholecystitis, CVA, Diverticulitis, Homicidal, Suicidal, threat to staff... and all critical care pts) @ -No Disposition Clinical Impression: Fall, Fracture of foot bone, right, closed Disposition: HOME SELF-CARE Condition: Good Instructions (If sedation given, give patient instructions): Foot Fracture in Adults (ED) Additional Instructions: Please return to the Emergency Department if symptoms worsen or any other concerns. As discussed, maintain nonweightbearing status to follow-up with wound specialist. Continue Tylenol Motrin as needed for pain relief. Keep foot elevated and use ice. Is patient prescribed a controlled substance at d/c from ED?: No Referrals: Tyrone Lewis MD [Primary Care Provider] - 1-2 days Thomas Ruiz MD [Medical Doctor] - 1-2 days Time of Disposition: 13:34
[2024-05-25] MEDS: ACETAMINOPHEN TAB 500 MG TAB PO STA (12:33)
--- NOTE | 2024-05-25 12:57 | CT ---
EXAMINATION TYPE: CT brain kathi wo con DATE OF EXAM: 05/25/2024 COMPARISON: None CLINICAL INDICATION: Female, 78 years old with history of fall, forehead hematoma, headache; PHH, fal l, forehead hematoma, headache TECHNIQUE: CT scan of the head and cervical spine are performed without contrast. CT DLP: 1283.[address] CTDI: mGy Automated exposure control for dose reduction was used. Findings: Head CT: Ventricles, basal cisterns and sulci over convexities within normal limits and there is no mass, mass effect or shift of midline structures. There is a moderate size area of encephalomalacia involving the right frontal lobe consistent with a remote infarct. There is mild ex vacuo dilatation of the right lateral ventricle. There is no acute intra or extra-axial hemorrhage. Posterior fossa including the brainstem, fourth ventricle and cerebellar pontine angles are grossly n ormal. Intraorbital contents are normal and symmetric. There is near-complete opacification of the left side of the sphenoid sinus consistent with chronic s phenoid sinusitis. There is fluid filling the left mastoid air cells. The right mastoid air cells are well aerated. There is a small cephalhematoma over the right frontal bone of the calvarium is intact.. CT cervical spine: Craniovertebral junction relationships and prevertebral soft tissues are normal. The cervical vertebral segments are normal in height and alignment and there is no fracture subluxati on. There is mild degenerative disc disease with mild displacement and spondylosis at C3-4 and C4-5 level s. The facet joints are intact. There is mild degeneration of the uncovertebral joints at the C3-4 an d C4-5 level. There is no The bony cervical canal is widely patent. There is moderate bony encroachment of the C4-5 neural fora rosas on the left The paraspinal soft tissues unremarkable. IMPRESSION: 1. Head CT: No acute bleed or mass effect. 2.Right frontal cephalohematoma but no calvarial fracture. 3. Sphenoid sinusitis and left mastoid air cells fluid 4.Mild degenerative disc disease and arthritis in the mid cervical spine as described above but no ce rvical spine trauma. [facility], , 05/25/2024 12:54 PM
--- NOTE | 2024-05-25 12:59 | XR ---
Right ankle. HISTORY: Pain following trauma COMPARISON: None TECHNIQUE: 3 views of the right ankle were obtained. FINDINGS: Ankle mortise is intact. There is no fracture the distal fibula, tibia, calcaneus or talus. Soft tissues are unremarkable. There is a nondisplaced nonintra-articular fracture of the proximal fifth metatarsal. IMPRESSION: 1. No ankle trauma. 2. Nondisplaced fracture of the proximal aspect of the fifth metatarsal. [facility], , 05/25/2024 12:57 PM
--- NOTE | 2024-05-25 13:01 | XR ---
Right foot HISTORY: Pain following trauma COMPARISON: None TECHNIQUE: 3 views of the right foot were obtained. FINDINGS: There is a nondisplaced fracture at the base of the fifth metatarsal. There is a mildly displaced non intra-articular fracture of the distal fourth metatarsal. There are no dislocations. Soft tissues are unremarkable. There is mild osteoarthritis of the interphalangeal joint of big toe and of the first MTP joint. IMPRESSION: Fractures of the fourth and fifth metatarsals as described above. [facility], , 05/25/2024 12:59 PM
[2024-05-25 13:58] VITALS: BP 120/73; PULSE 83; RESP 18; TEMP 97.9
== END 2024-05-25 14:02 | disposition home or self-care (01) ==
LOC: EC 11:52
DX: S92.356A Nondisplaced fracture of fifth metatarsal bone, unspecified foot, initial encounter for closed fracture (principal); Z87.891 Personal history of nicotine dependence; Z91.041 Radiographic dye allergy status; W10.8XXA Fall (on) (from) other stairs and steps, initial encounter
CPT/HCPCS: 70450; 72125; 99284

== ENCOUNTER 2024-06-07 09:04 | Emergency (ER) | payer MEDICARE ==
[2024-06-07 09:44] LABS: Basophils # (A) 0.07 10*3/uL (0.00-0.10); Basophils % (A) 0.6 %; Eosinophils # (A) 0.36 10*3/uL (0.04-0.35); Eosinophils % (A) 3.2 %; HCT 43.7 % (37.2-46.3); HGB 14.1 g/dL (12.0-15.0); Lymphocytes # (A) 2.06 10*3/uL (0.90-5.00); Lymphocytes % (A) 18.2 %; MCH 30.7 pg (27.0-32.0); MCHC 32.3 g/dL (32.0-37.0); Mean Platelet Volume 9.4 fL (9.5-12.2); Monocytes % (A) 6.2 %; Neutrophils # (A) 8.09 10*3/uL (1.80-7.70); Neutrophils % (A) 71.4 %; Platelet Count 259 10*3/uL (140-440); RDW 14.7 % (11.5-14.5); WBC 11.32 10*3/uL (4.50-10.00)
--- NOTE | 2024-06-07 09:59 | ED ---
General Adult HPI - General Chief complaint: Weakness Stated complaint: Fever,Weakness Time Seen by Provider: 06/07/24 09:10 Source: patient, RN notes reviewed, old records reviewed Mode of arrival: ambulatory Limitations: no limitations - History of Present Illness Initial comments: This is a 78-year-old female who presents to the emergency department states she woke up today and just did not feel well she states she was woke up sweaty at the time. Patient denies any headache patient denies numbness weakness. Patient any fever chills or cough. Patient denies chest pain difficulty breathing shortness of breath. Patient denies any abdominal pain. Patient denies any dysuria hematuria urinary frequency. Patient did fall and hit her head had quite a bit of old bruising on her forehead and face she states that is improving slowly. Patient states she was CAT scan when the accident happened. Patient only takes an aspirin as far as blood thinners. - Related Data Home Medications Medication Instructions Recorded Confirmed Cyanocobalamin (Vitamin B-12) 1,000 mcg PO DAILY 04/22/15 06/07/24 [Vitamin B-12] Insulin Glargine (Lantus) [Lantus 50 unit SQ HS 04/22/15 06/07/24 Vial] Metoprolol Tartrate [Lopressor] 75 mg PO W/BRKFST 04/22/15 06/07/24 Furosemide [Lasix] 40 mg PO DAILY 11/15/15 06/07/24 Glimepiride [Amaryl] 1 mg PO DAILY 09/26/16 06/07/24 allopurinoL [Zyloprim] 100 mg PO DAILY 05/24/18 06/07/24 Alendronate Sodium [Fosamax] 70 mg PO SA 07/27/21 06/07/24 Anastrozole [Arimidex] 1 mg PO DAILY 07/27/21 06/07/24 Atorvastatin [Lipitor] 40 mg PO DAILY 06/07/24 06/07/24 Cholecalciferol (Vitamin D3) 50 mcg PO DAILY 06/07/24 06/07/24 [Vitamin D3 (50 Mcg = 2000 Iu)] Losartan [Cozaar] 25 mg PO DAILY 06/07/24 06/07/24 Metoprolol Tartrate [Lopressor] 50 mg PO W/SUPPER 06/07/24 06/07/24 cilostazoL [Pletal] 100 mg PO BID 06/07/24 06/07/24 metFORMIN HCL [Glucophage] 1,000 mg PO DAILY 06/07/24 06/07/24 metFORMIN HCL [Glucophage] 500 mg PO HS 06/07/24 06/07/24 Previous Rx's Medication Instructions Recorded Nitroglycerin Sl Tabs [Nitrostat] 0.4 mg SUBLINGUAL Q5M PRN tab 05/31/18 Nitrofurantoin Monohyd/M-Cryst 100 mg PO Q12HR #14 cap 06/07/24 [Macrobid] Allergies Allergy/AdvReac Type Severity Reaction Status Date / Time Iodinated Contrast Media Allergy Anaphylaxis Verified 06/07/24 13:01 [Iodinated Contrast Media - IV Dye] Review of Systems ROS Statement: Those systems with pertinent positive or pertinent negative responses have been documented in the HPI. ROS Other: All systems not noted in ROS Statement are negative. Past Medical History Past Medical History: Asthma, Diabetes Mellitus, Eye Disorder, Hyperlipidemia, Myocardial Infarction (LA) Additional Past Medical History / Comment(s): ankle swelling, see Dr Gonzalez H&P, diabetic neuropathy, glaucoma Last Myocardial Infarction Date:: 2006 History of Any Multi-Drug Resistant Organisms: None Reported Past Surgical History: AICD, Appendectomy, Coronary Bypass/CABG, Heart Catheterization, Heart Catheterization With Stent, Hysterectomy, Orthopedic Surgery, Tonsillectomy Additional Past Surgical History / Comment(s): removal of gallstones, hammertoe rt foot, CABG-2008, total 5 cardiac stents Past Anesthesia/Blood Transfusion Reactions: No Reported Reaction Additional Past Anesthesia/Blood Transfusion Reaction / Comment(s): Pt has received blood in the past without reaction. Date of Last Stent Placement:: 06/2015 Type of Cardiac Device: AICD Device Placement Date:: 2015 Past Psychological History: No Psychological Hx Reported Smoking Status: Former smoker - Past Family History Mother Family Medical History: Cancer Additional Family Medical History / Comment(s): Mother of colon cancer at the age of 44 yrs. Brother(s) Family Medical History: Coronary Artery Disease (CAD), Diabetes Mellitus Father History Unknown: Yes Daughter(s) Family Medical History: Cancer Additional Family Medical History / Comment(s): BREAST CANCER General Exam - General Exam Comments Initial Comments: GENERAL: Patient is well-developed and well-nourished. Patient is nontoxic and well- hydrated and is in mild distress. ENT: Neck is soft and supple. No significant lymphadenopathy is noted. Oropharynx is clear. Moist mucous membranes. Neck has full range of motion without eliciting any pain. EYES: The sclera were anicteric and conjunctiva were pink and moist. Extraocular movements were intact and pupils were equal round and reactive to light. Eyelids were unremarkable. PULMONARY: Unlabored respirations. Good breath sounds bilaterally. No audible rales rhonchi or wheezing was noted. CARDIOVASCULAR: There is a regular rate and rhythm without any murmurs gallops or rubs. ABDOMEN: Soft and nontender with normal bowel sounds. SKIN: Patient has some old bruising to the right side of the forehead and face NEUROLOGIC: Patient is alert and oriented x3. Cranial nerves II through XII are grossly in tact. Motor and sensory are also intact. Normal speech, volume and content. Symmetrical smile. MUSCULOSKELETAL: Normal extremities with adequate strength and full range of motion. PSYCHIATRIC: Normal psychiatric evaluation. Limitations: no limitations Course Vital Signs 06/07/24 06/07/24 09:05 10:13 Temperature 97.5 F L Pulse Rate 84 80 Respiratory 18 18 Rate Blood Pressure 197/85 146/65 O2 Sat by Pulse 98 95 Oximetry Medical Decision Making - Medical Decision Making EKG is interpreted by myself but EKG shows a sinus rhythm at 81 bpm MD interval is 120 QRS is 134 QT interval is 393 QTc is 431. EKG also shows a PVC EKG is of poor quality especially V6 is unreadable Was pt. sent in by a medical professional or institution (, PA, VAT WASHER, urgent care, hospital, or alf...) When possible be specific @ -No Did you speak to anyone other than the patient for history (EMS, parent, family, police, friend...)? What history was obtained from this source @ -No Did you review nursing and triage notes (agree or disagree)? Why? @ -I reviewed and agree with nursing and triage notes Were old charts reviewed (outside hosp., previous admission, EMS record, old EKG, old radiological studies, urgent care reports/EKG's, alf records)? Report findings @ -No old charts were reviewed Differential Diagnosis? @ -Differential Weakness: Hypoglycemia, shock, sepsis, hyponatremia, anemia, infection, LA, ETOH, adverse medicine reaction, overdose, stroke, this is not meant to be an all-inclusive list. EKG interpreted by me (3pts min.). @ -As above X-rays interpreted by me (1pt min.). @ -Chest x-ray showed no acute abnormality CT interpreted by me (1pt min.). @ -CT of the brain showed no acute abnormality U/S interpreted by me (1pt. min.). @ -None done What testing was considered but not performed or refused? (CT, X-rays, U/S, labs)? Why? @ -None What meds were considered but not given or refused? Why? @ -None Did you discuss the management of the patient with other professionals (professionals i.e. , PA, VAT WASHER, lab, RT, psych nurse, 7th grade social studies teacher, industrial health and safety professor, teacher, truant officer, catalytic case operator)? Give summary @ -No Was smoking cessation discussed for >3mins.? @ -No Was critical care preformed (if so, how long)? @ -No Were there social determinants of health that impacted care today? How? (Homelessness, low income, unemployed, alcoholism, drug addiction, transportation, low edu. Level, literacy, decrease access to med. care, halfway, rehab)? @ -No Was there de-escalation of care discussed even if they declined (Discuss DNR or withdrawal of care, Hospice)? DNR status @ -No What co-morbidities impacted this encounter? (DM, HTN, Smoking, COPD, CAD, Cancer, CVA, ARF, Chemo, Hep., AIDS, mental health diagnosis, sleep apnea, morbid obesity)? @ -None Was patient admitted / discharged? Hospital course, mention meds given and route, prescriptions, significant lab abnormalities, going to OR and other pertinent info. @ -Patient did not have the feeling of feeling ill in the emergency department. Patient's urine came back with positive nitrates and 7 white cells so I presume that she had an infection given 2 g Rocephin we will send her home on an antibiotic. Undiagnosed new problem with uncertain prognosis? @ -No Drug Therapy requiring intensive monitoring for toxicity (Heparin, Nitro, Insulin, Cardizem)? @ -No Were any procedures done? @ -No Diagnosis/symptom? @ -Urinary tract infection Acute, or Chronic, or Acute on Chronic? @ -Acute Uncomplicated (without systemic symptoms) or Complicated (systemic symptoms)? @ -Complicated Side effects of treatment? @ -No Exacerbation, Progression, or Severe Exacerbation? @ -No Poses a threat to life or bodily function? How? (Chest pain, USA, LA, pneumonia, PE, COPD, DKA, ARF, appy, cholecystitis, CVA, Diverticulitis, Homicidal, Suicidal, threat to staff... and all critical care pts) @ -[No - Lab Data Result diagrams: 06/07/24 09:37 06/07/24 09:37 Lab Results 06/07/24 06/07/24 06/07/24 Range/Units 09:37 09:37 09:37 WBC 11.32 H (4.50-10.00) 10*3/uL RBC 4.60 (4.10-5.20) 10*6/uL Hgb 14.1 (12.0-15.0) g/dL Hct 43.7 (37.2-46.3) % MCV 95.0 (80.0-97.0) fL MCH 30.7 (27.0-32.0) pg MCHC 32.3 (32.0-37.0) g/dL Plt Count 259 (140-440) 10*3/uL MPV 9.4 L (9.5-12.2) fL Immature Gran % (Auto) 0.4 % Neutrophils % 71.4 % Lymphocytes % 18.2 % Monocytes % 6.2 % Eosinophils % 3.2 % Basophils % 0.6 % Immature Gran # 0.04 (0.00-0.04) 10*3/uL Neutrophils # 8.09 H (1.80-7.70) 10*3/uL Lymphocytes # 2.06 (0.90-5.00) 10*3/uL Monocytes # 0.70 (0.20-1.00) 10*3/uL Eosinophils # 0.36 H (0.04-0.35) 10*3/uL Basophils # 0.07 (0.00-0.10) 10*3/uL PT 10.2 (10.0-12.5) sec INR 0.9 (<1.2) APTT 22.0 (22.0-30.0) sec Sodium (137-145) mmol/L Potassium (3.5-5.1) mmol/L Chloride (98-107) mmol/L Carbon Dioxide (22-30) mmol/L Anion Gap mmol/L BUN (7-17) mg/dL Creatinine (0.52-1.04) mg/dL Est GFR (CKD-EPI)AfAm (>60 ml/min/1.73 sqM) Est GFR (CKD-EPI)NonAf (>60 ml/min/1.73 sqM) Glucose (74-99) mg/dL Lactic Ac Sepsis Rflx Plasma Lactic Acid Diallo (0.7-2.0) mmol/L Calcium (8.4-10.2) mg/dL Magnesium (1.6-2.3) mg/dL Total Bilirubin (0.2-1.3) mg/dL AST (14-36) U/L ALT (4-34) U/L Alkaline Phosphatase (38-126) U/L Troponin I (0.000-0.034) ng/mL Total Protein (6.3-8.2) g/dL Albumin (3.5-5.0) g/dL Urine Color Light Yellow Urine Appearance Cloudy H (Clear) Urine pH 7.5 (5.0-8.0) Ur Specific [place] 1.018 (1.001-1.035) Urine Protein Trace H (Negative) Urine Glucose (UA) Negative (Negative) Urine Ketones Negative (Negative) Urine Blood Negative (Negative) Urine Nitrite Positive H (Negative) Urine Bilirubin Negative (Negative) Urine Urobilinogen <2.0 (<2.0) mg/dL Ur Leukocyte Esterase Negative (Negative) Urine RBC <1 (0-5) /hpf Urine WBC 7 H (0-5) /hpf Hyaline Casts 3 H (0-2) /lpf Urine Mucus Rare H (None) /hpf 06/07/24 06/07/24 06/07/24 Range/Units 09:37 09:37 09:37 WBC (4.50-10.00) 10*3/uL RBC (4.10-5.20) 10*6/uL Hgb (12.0-15.0) g/dL Hct (37.2-46.3) % MCV (80.0-97.0) fL MCH (27.0-32.0) pg MCHC (32.0-37.0) g/dL Plt Count (140-440) 10*3/uL MPV (9.5-12.2) fL Immature Gran % (Auto) % Neutrophils % % Lymphocytes % % Monocytes % % Eosinophils % % Basophils % % Immature Gran # (0.00-0.04) 10*3/uL Neutrophils # (1.80-7.70) 10*3/uL Lymphocytes # (0.90-5.00) 10*3/uL Monocytes # (0.20-1.00) 10*3/uL Eosinophils # (0.04-0.35) 10*3/uL Basophils # (0.00-0.10) 10*3/uL PT (10.0-12.5) sec INR (<1.2) APTT (22.0-30.0) sec Sodium 142 (137-145) mmol/L Potassium 4.5 (3.5-5.1) mmol/L Chloride 104 (98-107) mmol/L Carbon Dioxide 29 (22-30) mmol/L Anion Gap 9 mmol/L BUN 21 H (7-17) mg/dL Creatinine 1.16 H (0.52-1.04) mg/dL Est GFR (CKD-EPI)AfAm 53 (>60 ml/min/1.73 sqM) Est GFR (CKD-EPI)NonAf 46 (>60 ml/min/1.73 sqM) Glucose 72 L (74-99) mg/dL Lactic Ac Sepsis Rflx Plasma Lactic Acid Diallo 2.7 H* (0.7-2.0) mmol/L Calcium 9.5 (8.4-10.2) mg/dL Magnesium 2.2 (1.6-2.3) mg/dL Total Bilirubin 0.7 (0.2-1.3) mg/dL AST 24 (14-36) U/L ALT 17 (4-34) U/L Alkaline Phosphatase 62 (38-126) U/L Troponin I 0.014 (0.000-0.034) ng/mL Total Protein 7.3 (6.3-8.2) g/dL Albumin 4.5 (3.5-5.0) g/dL Urine Color Urine Appearance (Clear) Urine pH (5.0-8.0) Ur Specific [place] (1.001-1.035) Urine Protein (Negative) Urine Glucose (UA) (Negative) Urine Ketones (Negative) Urine Blood (Negative) Urine Nitrite (Negative) Urine Bilirubin (Negative) Urine Urobilinogen (<2.0) mg/dL Ur Leukocyte Esterase (Negative) Urine RBC (0-5) /hpf Urine WBC (0-5) /hpf Hyaline Casts (0-2) /lpf Urine Mucus (None) /hpf 06/07/24 06/07/24 Range/Units 10:47 13:02 WBC (4.50-10.00) 10*3/uL RBC (4.10-5.20) 10*6/uL Hgb (12.0-15.0) g/dL Hct (37.2-46.3) % MCV (80.0-97.0) fL MCH (27.0-32.0) pg MCHC (32.0-37.0) g/dL Plt Count (140-440) 10*3/uL MPV (9.5-12.2) fL Immature Gran % (Auto) % Neutrophils % % Lymphocytes % % Monocytes % % Eosinophils % % Basophils % % Immature Gran # (0.00-0.04) 10*3/uL Neutrophils # (1.80-7.70) 10*3/uL Lymphocytes # (0.90-5.00) 10*3/uL Monocytes # (0.20-1.00) 10*3/uL Eosinophils # (0.04-0.35) 10*3/uL Basophils # (0.00-0.10) 10*3/uL PT (10.0-12.5) sec INR (<1.2) APTT (22.0-30.0) sec Sodium (137-145) mmol/L Potassium (3.5-5.1) mmol/L Chloride (98-107) mmol/L Carbon Dioxide (22-30) mmol/L Anion Gap mmol/L BUN (7-17) mg/dL Creatinine (0.52-1.04) mg/dL Est GFR (CKD-EPI)AfAm (>60 ml/min/1.73 sqM) Est GFR (CKD-EPI)NonAf (>60 ml/min/1.73 sqM) Glucose (74-99) mg/dL Lactic Ac Sepsis Rflx Y Plasma Lactic Acid Diallo 0.8 (0.7-2.0) mmol/L Calcium (8.4-10.2) mg/dL Magnesium (1.6-2.3) mg/dL Total Bilirubin (0.2-1.3) mg/dL AST (14-36) U/L ALT (4-34) U/L Alkaline Phosphatase (38-126) U/L Troponin I (0.000-0.034) ng/mL Total Protein (6.3-8.2) g/dL Albumin (3.5-5.0) g/dL Urine Color Urine Appearance (Clear) Urine pH (5.0-8.0) Ur Specific [place] (1.001-1.035) Urine Protein (Negative) Urine Glucose (UA) (Negative) Urine Ketones (Negative) Urine Blood (Negative) Urine Nitrite (Negative) Urine Bilirubin (Negative) Urine Urobilinogen (<2.0) mg/dL Ur Leukocyte Esterase (Negative) Urine RBC (0-5) /hpf Urine WBC (0-5) /hpf Hyaline Casts (0-2) /lpf Urine Mucus (None) /hpf Disposition Clinical Impression: Urinary tract infection Disposition: HOME SELF-CARE Condition: Good Instructions (If sedation given, give patient instructions): Urinary Tract Infection in Women (ED) Prescriptions: Nitrofurantoin Monohyd/M-Cryst [Macrobid] 100 mg PO Q12HR #14 cap Is patient prescribed a controlled substance at d/c from ED?: No Referrals: Tyrone Lewis MD [Primary Care Provider] - 1-2 days Time of Disposition: 14:16
[2024-06-07 10:10] LABS: ALT 17 U/L (4-34); AST 24 U/L (14-36); African American GFR (CKD) 53 (>60 ml/min/1.73 sqM); Albumin 4.5 g/dL (3.5-5.0); Alkaline Phosphatase 62 U/L (38-126); Anion Gap 9 mmol/L; Blood Urea Nitrogen 21 mg/dL (7-17); Calcium 9.5 mg/dL (8.4-10.2); Carbon Dioxide 29 mmol/L (22-30); Chloride 104 mmol/L (98-107); Glucose 72 mg/dL (74-99); Magnesium 2.2 mg/dL (1.6-2.3); Non-African American GFR(CKD) 46 (>60 ml/min/1.73 sqM); Potassium 4.5 mmol/L (3.5-5.1); Sodium 142 mmol/L (137-145); Total Bilirubin 0.7 mg/dL (0.2-1.3); Total Protein 7.3 g/dL (6.3-8.2)
[2024-06-07 10:12] LABS: INR 0.9 (<1.2); Prothrombin Time 10.2 sec (10.0-12.5)
--- NOTE | 2024-06-07 10:31 | XR ---
EXAMINATION TYPE: XR chest 2V DATE OF EXAM: 06/07/2024 9:49 AM COMPARISON: 11/17/2015 CLINICAL INDICATION: Female, 78 years old with history of Weakness, TECHNIQUE: XR chest 2V view(s) obtained. FINDINGS: The heart size is normal. Pacemaker overlies left chest. Sternotomy wires are in the midline. The pulmonary vasculature is normal. The lungs are clear. IMPRESSION: 1. No acute pulmonary process. [facility], , 06/07/2024 10:29 AM
--- NOTE | 2024-06-07 10:31 | CT ---
EXAMINATION TYPE: CT brain wo con DATE OF EXAM: 06/07/2024 9:49 AM COMPARISON: 05/25/2024 CLINICAL INDICATION: Female, 78 years old with history of weakness, Weakness TECHNIQUE: CT of the brain is performed utilizing 3 mm thick sections through the posterior fossa and 3 mm thick sections through the remaining calvarium. Study is performed within 24 hours of arrival to the hospital. Contrast used: mL of , (none if empty) CT DLP: 1097.8 mGycm, Automated exposure control for dose reduction was used. FINDINGS: No abnormal hyperdensity is present to suggest an acute intracranial hemorrhage. No mass lesion is evident. No acute infarcts are evident. There is an old infarct along the right frontal parietal region. Mild ex vacuo effect on the anterior horn lateral ventricle. Ventricles and sulci are appropriate for the patient age. Paranasal sinuses and mastoid air cells within the [id number] are clear. IMPRESSION: 1. No acute intracranial process. Follow up MRI can be performed as clinically indicated. 2. 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 [facility], , 06/07/2024 10:28 AM
[2024-06-07] MEDS: SODIUM CHLORIDE 0.9% 500 ML 500 ML IV ONE (10:46)
[2024-06-07 13:58] LABS: Appearance,Urine Cloudy (Clear); Bilirubin,Urine Negative (Negative); Blood,Urine Negative (Negative); Color,Urine Light Yellow; Glucose,Urine (UA) Negative (Negative); Hyaline Casts,Urine 3 /lpf (0-2); Ketones,Urine Negative (Negative); Leukocyte Esterase,Urine Negative (Negative); Mucus,Urine Rare /hpf; Nitrite,Urine Positive (Negative); PH, Urine 7.5 (5.0-8.0); Protein,Urine Trace (Negative); RBC,Urine <1 /hpf (0-5); Specific Gravity,Urine 1.018 (1.001-1.035); Urobilinogen,Urine <2.0 mg/dL (<2.0); WBC,Urine 7 /hpf (0-5)
[2024-06-07] MEDS: cefTRIAXone IN SWFI 1,000 MG/10 ML SYRINGE IVP STA ×2 (14:18→14:57)
[2024-06-07 15:10] VITALS: BP 139/77; PULSE 76; RESP 16; TEMP 97.6
== END 2024-06-07 15:55 | disposition home or self-care (01) ==
LOC: EC 09:04
DX: N39.0 Urinary tract infection, site not specified (principal); Z87.891 Personal history of nicotine dependence; Z91.041 Radiographic dye allergy status
CPT/HCPCS: 99285; 96374; 96361; 51701; 51798; 36415; 93005; 80053; 83605; 83735; 84484; 85025; 85610; 85730; 81001; 71046; 70450; J0696

== ENCOUNTER 2024-08-28 12:27 | Day surgery (SDC) | payer MEDICARE ==
[~2024-08-28 12:27] MED LIST changes: +HYDROmorphone 0.5 MG/0.5 ML SYRINGE IVP PRN; -LACTATED RINGERS 1,000 ML IV SCH
[2024-08-28 13:05] VITALS: TEMP 97.2
[2024-08-28] MEDS: LACTATED RINGERS 1,000 ML IV SCH (13:23)
[2024-08-28 13:24] LABS: Glucose,Whole Blood 121 mg/dL (70-110)
[2024-08-28] MEDS: IV FLUID CONTINUATION 1,000 ML IV ONE (13:24)
[2024-08-28] MEDS: ONDANSETRON 4 MG/2 ML VIAL IVP ONE (13:25)
[2024-08-28] MEDS ORDERED: fentaNYL (PF) 50 MCG/ML 2 ML AMP ONE (14:08)
[2024-08-28] MEDS ORDERED: PROPOFOL 10 MG/ML 20 ML VIAL IV ONE (14:08)
[2024-08-28] MEDS ORDERED: MIDAZOLAM 2 MG/2 ML VIAL ONE (14:08)
[2024-08-28] MEDS ORDERED: KETAMINE HCL IN 0.9 % NACL 50 MG/5 ML SYRINGE ONE (14:08)
[2024-08-28] MEDS: LIDOCAINE 1% INJ 10MG/ML (20 ML MDV) SQ ONE (14:25)
[2024-08-28 14:55] VITALS: RESP 16
--- NOTE | 2024-08-28 14:56 | P.OP ---
Date of Procedure: 08/28/24 Description of Procedure: SURGEON: Veronique Flannery DO DAIRY ASSOCIATE: None PREOPERATIVE DIAGNOSIS: Nonhealing wound right second toe, POSTOPERATIVE DIAGNOSIS: Same OPERATION: Right second toe amputation ANESTHESIA: Sedation with local ESTIMATED BLOOD LOSS: Less than 5 cc SPECIMENS REMOVED: Right second toe for disposal COMPLICATIONS: None immediately apparent OPERATIVE FINDINGS: Patient is a 78-year-old female with a nonhealing wound to her second toe and concerns of possible osteomyelitis per wound care therefore she presented for amputation of her toe. The patient was desirous of. Risks and benefits were discussed. She seemed understood and was willing to proceed. DESCRIPTION OF PROCEDURE: This patient was brought to the operating room, and given local and IV sedation. The operative foot was prepped and draped in sterile manner. An incision was made at the base of the toe deep into skin and fascia on plantar and dorsal aspect until we reached the head of the metatarsal bone. The tendons were divided in plantar and dorsal aspects. The toe toe was removed. The wound was then irrigated. Hemostasis was achieved with electrocautery.. Base of the wound looked clean, and the wound was copiously irrigated with saline. Tissue was approximated with 3-0 Vicryl interrupted sutures and skin utilizing 3-0 nylon.. Hemostasis was well controlled and pressure dressing was applied. The patient tolerated the procedure well. Plan - Discharge Summary Discharge Rx Participant: No New Discharge Prescriptions: No Action Insulin Glargine (Lantus) [Lantus Vial] 40 unit SQ HS Metoprolol Tartrate [Lopressor] 75 mg PO W/BRKFST Cyanocobalamin (Vitamin B-12) [Vitamin B-12] 1,000 mcg PO DAILY Furosemide [Lasix] 40 mg PO DAILY allopurinoL [Zyloprim] 100 mg PO DAILY Nitroglycerin Sl Tabs [Nitrostat] 0.4 mg SUBLINGUAL Q5M PRN tab PRN Reason: Chest Pain cilostazoL [Pletal] 100 mg PO BID Metoprolol Tartrate [Lopressor] 50 mg PO W/SUPPER Losartan [Cozaar] 25 mg PO HS Aspirin EC [Ecotrin Low Dose] 81 mg PO HS Anastrozole [Arimidex] 1 mg PO DAILY metFORMIN HCL [Glucophage] 500 mg PO BID Cholecalciferol (Vitamin D3) [Vitamin D3 (50 Mcg = 2000 Iu)] 25 mcg PO DAILY Atorvastatin [Lipitor] 40 mg PO HS Discharge Medication List Cyanocobalamin (Vitamin B-12) [Vitamin B-12] 1,000 mcg PO DAILY 04/22/15 [History] Insulin Glargine (Lantus) [Lantus Vial] 40 unit SQ HS 04/22/15 [History] Metoprolol Tartrate [Lopressor] 75 mg PO W/BRKFST 04/22/15 [History] Furosemide [Lasix] 40 mg PO DAILY 11/15/15 [History] allopurinoL [Zyloprim] 100 mg PO DAILY 05/24/18 [History] Nitroglycerin Sl Tabs [Nitrostat] 0.4 mg SUBLINGUAL Q5M PRN tab 05/31/18 [Rx] Anastrozole [Arimidex] 1 mg PO DAILY 07/27/21 [History] Atorvastatin [Lipitor] 40 mg PO HS 06/07/24 [History] Cholecalciferol (Vitamin D3) [Vitamin D3 (50 Mcg = 2000 Iu)] 25 mcg PO DAILY 06/07/24 [History] Losartan [Cozaar] 25 mg PO HS 06/07/24 [History] Metoprolol Tartrate [Lopressor] 50 mg PO W/SUPPER 06/07/24 [History] cilostazoL [Pletal] 100 mg PO BID 06/07/24 [History] metFORMIN HCL [Glucophage] 500 mg PO BID 06/07/24 [History] Aspirin EC [Ecotrin Low Dose] 81 mg PO HS 08/26/24 [History] Follow up Appointment(s)/Referral(s): Veronique Mtz DO [STAFF PHYSICIAN] - 10 Days Activity/Diet/Wound Care/Special Instructions: Resume regular activity, heel touch weightbearing only on the right lower extremity. Utilize postoperative shoe. Dressing change every other day with dry gauze. No soaking, pools or hot tubs until seen in the office. May shower starting tomorrow however make sure wound is well dried. Utilize walker or cane for stability. May resume all previous medications. Regular diet as previously tolerated. Discharge Disposition: HOME SELF-CARE
[2024-08-28 16:21] VITALS: BP 157/76; PULSE 67
[2024-08-28 16:27] LABS: Glucose,Whole Blood 116 mg/dL (70-110)
== END 2024-08-28 16:43 | disposition home or self-care (01) ==
LOC: OR 12:27
PROVIDERS: ATTEND Surgery
DX: L03.031 Cellulitis of right toe (principal); E11.22 Type 2 diabetes mellitus with diabetic chronic kidney disease; N18.30 Chronic kidney disease, stage 3 unspecified; I12.9 Hypertensive chronic kidney disease with stage 1 through stage 4 chronic kidney disease, or unspecified chronic kidney disease; C50.911 Malignant neoplasm of unspecified site of right female breast; I25.2 Old myocardial infarction; J45.909 Unspecified asthma, uncomplicated; E78.5 Hyperlipidemia, unspecified; Z95.0 Presence of cardiac pacemaker; Z87.891 Personal history of nicotine dependence; Z91.041 Radiographic dye allergy status; Z79.02 Long term (current) use of antithrombotics/antiplatelets; Z79.84 Long term (current) use of oral hypoglycemic drugs; Z79.811 Long term (current) use of aromatase inhibitors; Z79.899 Other long term (current) drug therapy
CPT/HCPCS: 28810; J2250; J0690; J2405; J2003; J3010; J2704